=== PATIENT | female | born 1975 | race Caucasian/White ===

== ENCOUNTER 2019-01-01 09:11 | Inpatient (IN) | payer MEDICAID ==
[~2019-01-01] VITALS: Ht 152.4 cm; Wt 93.0 kg
[~2019-01-01 09:11] MED LIST: ESCI10TA PO; HCTZ25T PO; LISI-600 PO; NICO-687 TD
[2019-01-01 09:47] LABS: BASOPHILS % (AUTO) 0.4 % (0-1); EOSINOPHILS # (AUTO) 0.1 X10'3 (0-0.9); EOSINOPHILS % (AUTO) 1.2 % (0-6); HEMATOCRIT 43.6 % (35.0-45.0); HEMOGLOBIN 14.6 g/dl (12.0-16.0); LYMPHOCYTES # (AUTO) 2.3 X10'3 (1.1-4.8); MEAN CORPUSCULAR HEMOGLOBIN 29.9 PG (27.0-31.0); MEAN CORPUSCULAR HGB CONC 33.5 g/dL (33.0-36.5); MEAN CORPUSCULAR VOLUME 89.2 FL (78-98); MEAN PLATELET VOLUME 9.1 FL (7.4-10.4); MONOCYTES # (AUTO) 0.8 X10'3 (0-0.9); MONOCYTES % (AUTO) 9.1 % (2-12); NEUTROPHILS % (AUTO) 64.3 % (42-75); PLATELET COUNT 226 X10'3 (140-440); RED BLOOD COUNT 4.89 X10'6 (4.20-5.60); RED CELL DISTRIBUTION WIDTH 13.4 % (11.5-14.5); WHITE BLOOD COUNT 9.3 X10'3 (4.5-11.0)
[2019-01-01 10:00] LABS: ALANINE AMINOTRANSFERASE 22 U/L (12-78); ALBUMIN 3.5 G/DL (3.4-5.0); ALBUMIN/GLOBULIN RATIO 0.9 (1.1-1.5); ALKALINE PHOSPHATASE 65 IU/L (46-116); ANION GAP 12 (8-16); ASPARTATE AMINO TRANSFERASE 12 U/L (10-37); BILIRUBIN,TOTAL 0.3 MG/DL (0.1-1.0); BLOOD UREA NITROGEN 11 MG/DL (7-18); BUN/CREATININE RATIO 15.9 (6.6-38.0); CALCIUM 8.6 MG/DL (8.5-10.1); CHLORIDE 107 MMOL/L (99-107); CREATININE 0.69 MG/DL (0.40-0.90); GLUCOSE 123 MG/DL (70-104); PARTIAL THROMBOPLASTIN TIME 26 SECONDS (22-32); POTASSIUM 3.4 MMOL/L (3.5-5.1); SODIUM 145 MMOL/L (135-145); TOTAL PROTEIN 7.2 G/DL (6.4-8.2); eGFR > 90 ML/MIN
[2019-01-01 10:03] LABS: TROPONIN I < 0.04 NG/ML (0.0-0.05)
--- NOTE | 2019-01-01 10:30 | NUR ---
MD SOSA TELE MED ON SCREEN.
[2019-01-01] MEDS ORDERED: aspirin 325mg tablet PO ONE (10:40)
[2019-01-01] MEDS ORDERED: labetalol 20mg/4ml (5mg/ml) syringe IV ONE (11:25)
[2019-01-01] MEDS ORDERED: ondansetron/PF 4mg/2ml inj IV PRN (12:00)
[2019-01-01] MEDS ORDERED: magnesium hydroxide 30ml (MOM) UD suspension PO PRN (12:00)
[2019-01-01] MEDS ORDERED: mag hydrox/Alum hydrox/simeth 30ml oral suspension PO PRN (12:00)
[2019-01-01] MEDS ORDERED: LORazepam 1 MG tablet PO ONE (12:05)
[2019-01-01] MEDS: normal saline 1000ml 1,000 ML IV SCH ×2 (12:17→14:31)
[2019-01-01 12:50] LABS: URINE AMPHETAMINE SCREEN NEGATIVE (Neg); URINE BARBITUATE SCREEN NEGATIVE (Neg); URINE BENZODIAZEPINES SCREEN NEGATIVE (Neg); URINE CANNABINOID SCREEN POSITIVE (Neg); URINE COCAINE SCREEN NEGATIVE (Neg); URINE METHADONE SCREEN NEGATIVE (Neg); URINE OPIATE SCREEN NEGATIVE (Neg); URINE PHENCYCLIDINE SCREEN NEGATIVE (Neg)
[2019-01-01 13:01] LABS: CHOL/HDL RATIO 3.7 (0.00-4.99); CHOLESTEROL 156 MG/DL (0-200); HDL CHOLESTEROL 42 MG/DL (35-60); LDL CHOLESTEROL 96 MG/DL (50-100); TRIGLYCERIDES 113 MG/DL (20-135)
[2019-01-01] MEDS ORDERED: NICO-687 TOP (13:18)
[2019-01-01] MEDS ORDERED: LISI40TA4 PO (13:19)
--- NOTE | 2019-01-01 16:45 | NUR ---
PAGE to Dr Mccrary: #[id number]: Sri Camp: Hx of High BP: L facial numbness, lips, tongue, cheek, nares. No obvious physical deficits. 1340: 186/87 gradual elevation: Current: 216/104, 199/104. Renetta [id number]
--- NOTE | 2019-01-01 17:07 | NUR ---
Per Dr Mccrary: BP not treated when systolic below 220; Neuro protocol for 48hrs.
[2019-01-01] MEDS ORDERED: nicotine 21mg patch - 24 hr TD ONE (17:25)
[2019-01-01 18:00] VITALS: BP 179/81
--- NOTE | 2019-01-01 18:10 | NUR ---
Report rec'd from anita Jackson. Pt with permissive hypertension per Dr Mccrary. do not tx htn <220 systolic.
--- NOTE | 2019-01-01 18:15 | NUR ---
Problems reprioritized. Patient report given, questions answered & plan of care reviewed with GABE Cortes.
[2019-01-01] MEDS: heparin, porcine 5000 units/ml vial SQ SCH (19:40)
[2019-01-01 22:00] VITALS: BP 200/92
[2019-01-02] MEDS: normal saline 1000ml 1,000 ML IV SCH ×2 (00:44→17:53)
[2019-01-02 02:00] VITALS: BP 171/83
[2019-01-02] MEDS: acetaminophen 325mg tablet PO PRN ×3 (02:27→20:52)
[2019-01-02 06:00] VITALS: BP 211/137
[2019-01-02 06:09] LABS: BASOPHILS % (AUTO) 0.3 % (0-1); EOSINOPHILS # (AUTO) 0.1 X10'3 (0-0.9); EOSINOPHILS % (AUTO) 1.6 % (0-6); HEMATOCRIT 40.5 % (35.0-45.0); HEMOGLOBIN 13.5 g/dl (12.0-16.0); LYMPHOCYTES % (AUTO) 37.3 % (21-51); MEAN CORPUSCULAR HEMOGLOBIN 30.1 PG (27.0-31.0); MEAN CORPUSCULAR HGB CONC 33.3 g/dL (33.0-36.5); MEAN CORPUSCULAR VOLUME 90.2 FL (78-98); MEAN PLATELET VOLUME 9.3 FL (7.4-10.4); MONOCYTES # (AUTO) 0.8 X10'3 (0-0.9); MONOCYTES % (AUTO) 9.8 % (2-12); NEUTROPHILS # (AUTO) 4.1 X10'3 (1.8-7.7); PLATELET COUNT 192 X10'3 (140-440); RED BLOOD COUNT 4.49 X10'6 (4.20-5.60); RED CELL DISTRIBUTION WIDTH 13.5 % (11.5-14.5); WHITE BLOOD COUNT 8.1 X10'3 (4.5-11.0)
--- NOTE | 2019-01-02 06:20 | NUR ---
Patient in room ORTHO 4014. I have received report from and had the opportunity to ask questions and assume patient care GABE Cortes.
[2019-01-02 06:21] LABS: ANION GAP 8 (8-16); BLOOD UREA NITROGEN 7 MG/DL (7-18); BUN/CREATININE RATIO 10.8 (6.6-38.0); CHLORIDE 108 MMOL/L (99-107); CREATININE 0.65 MG/DL (0.40-0.90); GLUCOSE 88 MG/DL (70-104); POTASSIUM 3.3 MMOL/L (3.5-5.1); SODIUM 143 MMOL/L (135-145); eGFR > 90 ML/MIN
--- NOTE | 2019-01-02 06:22 | NUR ---
Report given to anita Jackson.
[2019-01-02] MEDS ORDERED: magnesium Cl slow-release 64mg tablet PO PRN (07:05)
[2019-01-02] MEDS ORDERED: potassium Cl 20 mEq SR tablet PO PRN ×2 (07:05)
[2019-01-02] MEDS ORDERED: potassium CL 10mEq/100ml bag 100 ML IV PRN (07:05)
[2019-01-02 07:32] LABS: MAGNESIUM 1.5 MG/DL (1.5-2.4)
[2019-01-02] MEDS ORDERED: non-formulary drug (Escitalopram Oxalate (Lexapro) 1 TAB) PO SCH (08:00)
[2019-01-02] MEDS ORDERED: non-formulary drug (Lisinopril* 1 TAB) PO SCH (08:00)
[2019-01-02] MEDS: amLODIPine 5mg tablet PO SCH (09:13)
[2019-01-02] MEDS: atorvastatin 20mg tablet PO SCH (09:13)
[2019-01-02] MEDS: aspirin 81mg tablet.DR PO SCH (09:13)
[2019-01-02] MEDS: citalopram 20mg tablet PO SCH (09:13)
[2019-01-02] MEDS: lisinopril 20mg tablet PO SCH (09:16)
[2019-01-02] MEDS: nicotine 21mg patch - 24 hr TD SCH (09:17)
[2019-01-02] MEDS: heparin, porcine 5000 units/ml vial SQ SCH ×2 (09:18→20:39)
[2019-01-02 11:07] VITALS: BP 177/80
[2019-01-02 14:00] VITALS: BP 189/98
--- NOTE | 2019-01-02 16:00 | NUR ---
Pt BP elevated this shift; MD aware. pt had one SILVERMAN 01/09, relieved w/tylenol 650mg. pt neuro checks show no signs of worsening symptoms. 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 PERRL, denies blurry vision, peripheral vision good. symetrical smile. Pt ambulating to toilet and back w/no obvious deficits. will continue to monitor.
[2019-01-02] MEDS: carvedilol 6.25mg tablet PO SCH ×2 (17:48→20:39)
[2019-01-02 20:50] VITALS: BP 196/83
[2019-01-02 22:00] VITALS: BP 155/70
[2019-01-03] VITALS (7 sets, daily range): BP systolic 116–187; BP diastolic 68–86
--- NOTE | 2019-01-03 03:38 | NUR ---
Rec'd call from tele r/t pt HR dipping into 40's while sleeping. also again now, another call that pt had 4 sec pause and 20beat SVT over 7secs. REchecked VS and Pt BP 195/75, HR [address] at [address] time. Notified Dr. Carrizales, with details of administration and symptoms. New order to d/c Coreg and report to day shift MD. will continue to monitor pt VS.
[2019-01-03] MEDS: normal saline 1000ml 1,000 ML IV SCH (03:59)
--- NOTE | 2019-01-03 06:26 | NUR ---
I have received patient report from Sophia BERNAL.
[2019-01-03 06:35] LABS: BASOPHILS % (AUTO) 0.5 % (0-1); EOSINOPHILS # (AUTO) 0.2 X10'3 (0-0.9); EOSINOPHILS % (AUTO) 1.6 % (0-6); HEMATOCRIT 40.4 % (35.0-45.0); HEMOGLOBIN 13.6 g/dl (12.0-16.0); LYMPHOCYTES # (AUTO) 2.3 X10'3 (1.1-4.8); MEAN CORPUSCULAR HEMOGLOBIN 30.1 PG (27.0-31.0); MEAN CORPUSCULAR HGB CONC 33.6 g/dL (33.0-36.5); MEAN CORPUSCULAR VOLUME 89.6 FL (78-98); MEAN PLATELET VOLUME 9.3 FL (7.4-10.4); MONOCYTES % (AUTO) 9.7 % (2-12); NEUTROPHILS # (AUTO) 6.6 X10'3 (1.8-7.7); NEUTROPHILS % (AUTO) 65.2 % (42-75); PLATELET COUNT 190 X10'3 (140-440); RED BLOOD COUNT 4.51 X10'6 (4.20-5.60); RED CELL DISTRIBUTION WIDTH 13.3 % (11.5-14.5); WHITE BLOOD COUNT 10.1 X10'3 (4.5-11.0)
--- NOTE | 2019-01-03 06:40 | NUR ---
Report given to anita Wong.
[2019-01-03 06:41] LABS: ANION GAP 7 (8-16); BLOOD UREA NITROGEN 12 MG/DL (7-18); BUN/CREATININE RATIO 17.1 (6.6-38.0); CALCIUM 8.4 MG/DL (8.5-10.1); CHLORIDE 107 MMOL/L (99-107); GLUCOSE 86 MG/DL (70-104); MAGNESIUM 1.6 MG/DL (1.5-2.4); POTASSIUM 3.7 MMOL/L (3.5-5.1); SODIUM 142 MMOL/L (135-145); TOTAL CARBON DIOXIDE 28.4 MMOL/L (24-32); eGFR > 90 ML/MIN
[2019-01-03] MEDS: citalopram 20mg tablet PO SCH (08:10)
[2019-01-03] MEDS: amLODIPine 5mg tablet PO SCH (08:11)
[2019-01-03] MEDS: aspirin 81mg tablet.DR PO SCH (08:11)
[2019-01-03] MEDS: lisinopril 20mg tablet PO SCH (08:11)
[2019-01-03] MEDS: atorvastatin 20mg tablet PO SCH (08:11)
[2019-01-03] MEDS: nicotine 21mg patch - 24 hr TD SCH (08:12)
[2019-01-03] MEDS: heparin, porcine 5000 units/ml vial SQ SCH ×2 (08:13→20:39)
--- NOTE | 2019-01-03 08:48 | NUR ---
Dr Mccrary paged regarding BP 218/93, which is still high, patient given bp meds this morning right after BP check.
[2019-01-03] MEDS ORDERED: hydrALAZINE 20mg/ml inj. IV ONE (08:50)
[2019-01-03] MEDS ORDERED: HYDROchlorothiazide 25mg tablet PO ONE (10:50)
[2019-01-03] MEDS ORDERED: carVEDilol 3.125mg tablet PO ONE (10:50)
[2019-01-03] MEDS: acetaminophen 325mg tablet PO PRN ×2 (11:00→20:37)
--- NOTE | 2019-01-03 17:44 | NUR ---
Dr. Mccrary paged about patient BP 204/91.
--- NOTE | 2019-01-03 18:22 | NUR ---
Patient report given to Sophia BERNAL
[2019-01-03] MEDS ORDERED: hydrALAZINE 20mg/ml inj. IV PRN (18:50)
--- NOTE | 2019-01-03 18:53 | NUR ---
Dr Mccrary returned call with new order for Hydralazine 10mg IV Q6hrs PRN. Orders placed. pt is to be NPO after midnight for renal US in AM.
[2019-01-03] MEDS: carVEDilol 3.125mg tablet PO SCH (20:38)
[2019-01-04 06:10] VITALS: BP 178/90
[2019-01-04 06:17] LABS: BASOPHILS % (AUTO) 0.4 % (0-1); EOSINOPHILS # (AUTO) 0.1 X10'3 (0-0.9); EOSINOPHILS % (AUTO) 1.4 % (0-6); HEMATOCRIT 44.1 % (35.0-45.0); HEMOGLOBIN 14.9 g/dl (12.0-16.0); LYMPHOCYTES # (AUTO) 2.5 X10'3 (1.1-4.8); LYMPHOCYTES % (AUTO) 25.6 % (21-51); MEAN CORPUSCULAR HEMOGLOBIN 29.7 PG (27.0-31.0); MEAN CORPUSCULAR HGB CONC 33.8 g/dL (33.0-36.5); MEAN CORPUSCULAR VOLUME 87.9 FL (78-98); MEAN PLATELET VOLUME 8.9 FL (7.4-10.4); MONOCYTES # (AUTO) 0.9 X10'3 (0-0.9); MONOCYTES % (AUTO) 8.6 % (2-12); NEUTROPHILS # (AUTO) 6.3 X10'3 (1.8-7.7); PLATELET COUNT 211 X10'3 (140-440); RED BLOOD COUNT 5.01 X10'6 (4.20-5.60); RED CELL DISTRIBUTION WIDTH 13.3 % (11.5-14.5); WHITE BLOOD COUNT 9.9 X10'3 (4.5-11.0)
--- NOTE | 2019-01-04 06:25 | NUR ---
REPORT GIVEN TO GABE RAMIREZ.
[2019-01-04 06:27] LABS: ALBUMIN 3.2 G/DL (3.4-5.0); ANION GAP 9 (8-16); BLOOD UREA NITROGEN 9 MG/DL (7-18); BUN/CREATININE RATIO 13.4 (6.6-38.0); CALCIUM 9.4 MG/DL (8.5-10.1); CHLORIDE 105 MMOL/L (99-107); CREATININE 0.67 MG/DL (0.40-0.90); GLUCOSE 96 MG/DL (70-104); MAGNESIUM 1.6 MG/DL (1.5-2.4); POTASSIUM 3.7 MMOL/L (3.5-5.1); SODIUM 140 MMOL/L (135-145); TOTAL CARBON DIOXIDE 25.9 MMOL/L (24-32); eGFR > 90 ML/MIN
--- NOTE | 2019-01-04 06:28 | NUR ---
I have received patient report from Sophia BERNAL
[2019-01-04] MEDS: amLODIPine 5mg tablet PO SCH (07:27)
[2019-01-04] MEDS: atorvastatin 20mg tablet PO SCH (07:27)
[2019-01-04] MEDS: citalopram 20mg tablet PO SCH (07:27)
[2019-01-04] MEDS: aspirin 81mg tablet.DR PO SCH (07:27)
[2019-01-04] MEDS: carVEDilol 3.125mg tablet PO SCH (07:28)
[2019-01-04] MEDS: lisinopril 20mg tablet PO SCH (07:28)
[2019-01-04] MEDS: nicotine 21mg patch - 24 hr TD SCH (07:28)
[2019-01-04] MEDS: heparin, porcine 5000 units/ml vial SQ SCH (07:30)
[2019-01-04] MEDS ORDERED: HYDROchlorothiazide 25mg tablet PO SCH (08:00)
[2019-01-04 10:00] VITALS: BP 145/51
[2019-01-04] MEDS ORDERED: ASPI-1071 PO (12:59)
[2019-01-04] MEDS ORDERED: ATOR20TA66 PO (12:59)
[2019-01-04] MEDS ORDERED: NOR5T PO (12:59)
[2019-01-04] MEDS ORDERED: LISI-600 PO (12:59)
[2019-01-04] MEDS ORDERED: COR3.125T PO (12:59)
[2019-01-04] MEDS ORDERED: HCTZ25T PO (12:59)
[2019-01-04] MEDS ORDERED: NICO-687 TOP (13:36)
[2019-01-04 13:48] VITALS: BP 168/77
--- NOTE | 2019-01-04 14:35 | NUR ---
Patient discharged and all new medications called into [facility]. Patient taught all discharge instructions regarding stroke and follow up appointment as well as new medication information.
== END 2019-01-04 14:30 | disposition home or self-care (01) | DRG 45 ==
LOC: ER 09:13 → ORTHO 4S 13:43 → CMPBEDREQ 19:57
PROVIDERS: ADMIT Family Medicine; ATTEND Family Medicine
DX: I63.81 Other cerebral infarction due to occlusion or stenosis of small artery (principal); E78.00 Pure hypercholesterolemia, unspecified; F12.90 Cannabis use, unspecified, uncomplicated; I10 Essential (primary) hypertension; J45.909 Unspecified asthma, uncomplicated; F17.219 Nicotine dependence, cigarettes, with unspecified nicotine-induced disorders; F32.9 Major depressive disorder, single episode, unspecified; E87.6 Hypokalemia; F41.9 Anxiety disorder, unspecified; G43.909 Migraine, unspecified, not intractable, without status migrainosus; Z98.891 History of uterine scar from previous surgery; Z79.899 Other long term (current) drug therapy; Z56.0 Unemployment, unspecified
CPT/HCPCS: 36415; 70450; 70544; 70547; 70551; 71045; 80048; 80053; 80061; 80305; 82948; 83735; 84484; 85025; 85610; 85730; 87081; 92508; 92616; 93005; 93306; 93880; 93975; 96374; 97110; 97116; 97162; 99285; G0378; J0360; J1644; J3490; J7030

== ENCOUNTER 2020-04-08 10:19 | Inpatient (IN) | payer MEDICAID ==
[~2020-04-08] VITALS: Ht 152.4 cm; Wt 106.8 kg
[~2020-04-08 10:19] MED LIST changes: +ASPI-1071 PO; +ATOR20TA66 PO; +COR3.125T PO; -NICO-687 TD; +NICO-687 TOP; +NOR5T PO
[2020-04-08 11:03] LABS: BASOPHILS # (AUTO) 0.1 X10'3 (0-0.2); BASOPHILS % (AUTO) 0.7 % (0-1); EOSINOPHILS # (AUTO) 0.2 X10'3 (0-0.9); EOSINOPHILS % (AUTO) 1.3 % (0-6); HEMATOCRIT 46.3 % (35.0-45.0); HEMOGLOBIN 15.2 g/dl (12.0-16.0); LYMPHOCYTES # (AUTO) 1.8 X10'3 (1.1-4.8); MEAN CORPUSCULAR HEMOGLOBIN 28.6 PG (27.0-31.0); MEAN CORPUSCULAR HGB CONC 32.9 g/dL (33.0-36.5); MEAN PLATELET VOLUME 8.6 FL (7.4-10.4); MONOCYTES # (AUTO) 1.1 X10'3 (0-0.9); MONOCYTES % (AUTO) 6.4 % (2-12); NEUTROPHILS # (AUTO) 14.6 X10'3 (1.8-7.7); NEUTROPHILS % (AUTO) 81.6 % (42-75); PLATELET COUNT 297 X10'3 (140-440); RED BLOOD COUNT 5.32 X10'6 (4.20-5.60); WHITE BLOOD COUNT 17.9 X10'3 (4.5-11.0)
[2020-04-08 11:13] LABS: ALANINE AMINOTRANSFERASE 29 U/L (12-78); ALBUMIN 3.5 G/DL (3.4-5.0); ALBUMIN/GLOBULIN RATIO 0.9 (1.1-1.5); ALKALINE PHOSPHATASE 78 IU/L (46-116); ANION GAP 8 (8-16); ASPARTATE AMINO TRANSFERASE 17 U/L (10-37); BILIRUBIN,TOTAL 0.6 MG/DL (0.1-1.0); BLOOD UREA NITROGEN 11 MG/DL (7-18); BUN/CREATININE RATIO 13.1 (6.6-38.0); CALCIUM 8.5 MG/DL (8.5-10.1); CHLORIDE 105 MMOL/L (99-107); CREATININE 0.84 MG/DL (0.40-0.90); GLUCOSE 110 MG/DL (70-104); LIPASE 55 U/L (73-393); POTASSIUM 3.9 MMOL/L (3.5-5.1); SODIUM 139 MMOL/L (135-145); TOTAL CARBON DIOXIDE 26.1 MMOL/L (24-32); TOTAL PROTEIN 7.3 G/DL (6.4-8.2); eGFR 73 ML/MIN
[2020-04-08 11:34] LABS: URINE HCG NEGATIVE (NEG)
[2020-04-08] MEDS ORDERED: ondansetron/PF 4mg/2ml inj IV ONE (11:35)
[2020-04-08] MEDS ORDERED: morphine 10mg/ml inj. IV ONE (11:35)
[2020-04-08] MEDS ORDERED: normal saline 1000ML IV soln IVB ONE (11:35)
[2020-04-08 11:45] LABS: CLARITY,URINE SLIGHTLY CLOUDY (Clear); COLOR,URINE YELLOW (Yellow); GLUCOSE, URINE NEGATIVE (Neg); KETONES,URINE NEGATIVE (Neg); LEUKOCYTE ESTERASE ,URINE NEGATIVE (Neg); NITRITES, URINE POSITIVE (Neg); OCCULT BLOOD,URINE TRACE-INTACT (Neg); PROTEIN,URINE 100 mg/dl (Neg); UROBILINOGEN,URINE 0.2 E.U/dL (0.2-1.0)
[2020-04-08 12:14] LABS: UA COLLECTION TYPE CLN CATCH MIDSTREAM
[2020-04-08 12:17] LABS: HYALINE CASTS 0-3 /LPF (NEGATIVE); SQUAMOUS EPITHELIAL CELL,UR MANY /LPF (FEW)
[2020-04-08 12:18] LABS: MUCUS STRANDS MODERATE /LPF (Neg)
[2020-04-08 12:21] LABS: WBC,URINE 0-4 /HPF (0-4)
[2020-04-08 12:27] LABS: BACTERIA,URINE 1+ /HPF (Neg); RBC,URINE 0-2 /HPF (0-2); YEAST FEW /HPF (NEGATIVE)
[2020-04-08] MEDS ORDERED: metroNIDAZOLE-Flagyl 500mg/NS 100 ML IV ONE (15:40)
[2020-04-08] MEDS ORDERED: CefTRIAXone 2gm/D5W 50ml BAG 50 ML IV ONE (15:40)
[2020-04-08] MEDS ORDERED: magnesium 2GM in 50ml NS 50 ML IV PRN (16:05)
[2020-04-08] MEDS ORDERED: potassium CL 10mEq/100ml bag 100 ML IV PRN ×2 (16:05)
[2020-04-08] MEDS ORDERED: magnesium Cl slow-release 64mg tablet PO PRN (16:05)
[2020-04-08] MEDS ORDERED: potassium Cl 20 mEq SR tablet PO PRN ×2 (16:05)
[2020-04-08] MEDS ORDERED: acetaminophen 325mg tablet PO PRN (16:05)
[2020-04-08] MEDS ORDERED: magnesium 4gm in 100ml NS 100 ML IV PRN (16:05)
[2020-04-08] MEDS: normal saline 1000ml 1,000 ML IV SCH (16:10)
[2020-04-08] MEDS ORDERED: ASPI-1397 PO (16:30)
[2020-04-08] MEDS ORDERED: AMLO10TA13 PO (16:30)
[2020-04-08] MEDS ORDERED: HYDR25TA4 PO (16:30)
[2020-04-08] MEDS ORDERED: CARV3.122 PO (16:30)
[2020-04-08] MEDS ORDERED: LISI-600 PO (16:30)
[2020-04-08] MEDS ORDERED: ATOR20TA66 PO (16:32)
[2020-04-08] MEDS: levoFLOXACIN-Levaquin 500mg/D5 100 ML IV SCH ×2 (17:21→17:24)
--- NOTE | 2020-04-08 18:45 | NUR ---
Pt assisted to restroom
--- NOTE | 2020-04-08 19:00 | NUR ---
Received report from Jaquelin BERNAL from ER, patient arrived on unit at 1914 on gurney, s.l. room air, vss, a/o, no signs of distress, will continue to monitor
[2020-04-08] MEDS: HYDROmorphone inj. 0.5 MG/0.5 ML DISP.SYRIN IV PRN (19:35)
[2020-04-08 20:00] VITALS: BP 152/78
[2020-04-08] MEDS: K and/or MAG REPLACEMENT MC SCH (20:00)
[2020-04-08] MEDS: morphine 2 MG/ML inj. syringe IV PRN (23:50)
[2020-04-09] VITALS: BP 128/61
[2020-04-09] MEDS: metroNIDAZOLE-Flagyl 500mg/NS 100 ML IV SCH ×3 (00:48→15:36)
[2020-04-09] MEDS: morphine 2 MG/ML inj. syringe IV PRN ×3 (04:41→20:22)
--- NOTE | 2020-04-09 06:03 | NUR ---
Problems reprioritized. Patient report given, questions answered & plan of care reviewed with Savannah BERNAL.
--- NOTE | 2020-04-09 06:04 | NUR ---
Patient in room LIU 347. I have received report from Yael BERNAL and had the opportunity to ask questions and assume patient care.
[2020-04-09 06:05] LABS: BASOPHILS % (AUTO) 0.5 % (0-1); EOSINOPHILS # (AUTO) 0.4 X10'3 (0-0.9); EOSINOPHILS % (AUTO) 4.3 % (0-6); HEMOGLOBIN 13.9 g/dl (12.0-16.0); LYMPHOCYTES # (AUTO) 2.3 X10'3 (1.1-4.8); LYMPHOCYTES % (AUTO) 24.6 % (21-51); MEAN CORPUSCULAR HEMOGLOBIN 29.8 PG (27.0-31.0); MEAN CORPUSCULAR VOLUME 87.5 FL (78-98); MEAN PLATELET VOLUME 8.9 FL (7.4-10.4); MONOCYTES % (AUTO) 10.6 % (2-12); NEUTROPHILS # (AUTO) 5.6 X10'3 (1.8-7.7); PLATELET COUNT 249 X10'3 (140-440); RED BLOOD COUNT 4.68 X10'6 (4.20-5.60); RED CELL DISTRIBUTION WIDTH 13.9 % (11.5-14.5); WHITE BLOOD COUNT 9.3 X10'3 (4.5-11.0)
[2020-04-09 06:18] LABS: ANION GAP 8 (8-16); BLOOD UREA NITROGEN 10 MG/DL (7-18); BUN/CREATININE RATIO 11.4 (6.6-38.0); CALCIUM 8.2 MG/DL (8.5-10.1); CHLORIDE 106 MMOL/L (99-107); CREATININE 0.88 MG/DL (0.40-0.90); GLUCOSE 98 MG/DL (70-104); MAGNESIUM 1.5 MG/DL (1.5-2.4); POTASSIUM 3.3 MMOL/L (3.5-5.1); SODIUM 140 MMOL/L (135-145); TOTAL CARBON DIOXIDE 26.5 MMOL/L (24-32); eGFR 69 ML/MIN
[2020-04-09] MEDS: normal saline 1000ml 1,000 ML IV SCH ×3 (07:10→17:55)
[2020-04-09] MEDS: ondansetron/PF 4mg/2ml inj IV PRN ×2 (07:20→15:36)
[2020-04-09] MEDS: HYDROmorphone inj. 0.5 MG/0.5 ML DISP.SYRIN IV PRN ×3 (07:26→17:56)
[2020-04-09] MEDS: levoFLOXACIN-Levaquin 500mg/D5 100 ML IV SCH (07:30)
[2020-04-09 08:00] VITALS: BP 189/69
[2020-04-09] MEDS: K and/or MAG REPLACEMENT MC SCH ×2 (08:00→20:00)
[2020-04-09] MEDS ORDERED: pneumococcal 23-VAL P-sac vacc 25 mcg/0.5ml vial IMVAC ONE (10:00)
[2020-04-09] MEDS ORDERED: FLU VACC QS2020-21(6MOS UP)/PF 60 MCG/0.5 ML SYRINGE IMVAC ONE (10:00)
[2020-04-09 11:00] VITALS: BP 185/86
[2020-04-09 11:45] VITALS: BP 157/82
[2020-04-09] MEDS ORDERED: hydrALAZINE 20mg/ml inj. IV PRN (13:20)
[2020-04-09] MEDS: lisinopril 20mg tablet PO SCH (15:36)
[2020-04-09] MEDS: ipratropium/albuterol 3ml nebule NEB SCH ×2 (15:49→20:36)
--- NOTE | 2020-04-09 18:27 | NUR ---
Problems reprioritized. Patient report given, questions answered & plan of care reviewed with Joseline BERNAL.
--- NOTE | 2020-04-09 18:45 | NUR ---
Patient in room LIU 347. I have received report from Arlyn BERNAL and had the opportunity to ask questions and assume patient care.
[2020-04-09 20:00] VITALS: BP 137/64
[2020-04-09] MEDS: lactobacillus rhamnosus 10,000 MMU CELLS/CAPSULE PO SCH (20:21)
[2020-04-09] MEDS: carVEDilol 3.125mg tablet PO SCH (20:21)
[2020-04-09] MEDS: diatr meglu/diatrizoate 30ml oral sol.-(3 dose) bottle PO SCH (20:22)
[2020-04-10] VITALS: BP 136/70
[2020-04-10] MEDS: ondansetron/PF 4mg/2ml inj IV PRN (00:07)
[2020-04-10] MEDS: metroNIDAZOLE-Flagyl 500mg/NS 100 ML IV SCH ×3 (00:07→16:44)
[2020-04-10] MEDS: HYDROmorphone inj. 0.5 MG/0.5 ML DISP.SYRIN IV PRN ×4 (00:07→16:45)
[2020-04-10] MEDS: ipratropium/albuterol 3ml nebule NEB SCH ×4 (04:37→21:01)
[2020-04-10 05:51] LABS: BASOPHILS % (AUTO) 0.4 % (0-1); EOSINOPHILS # (AUTO) 0.4 X10'3 (0-0.9); EOSINOPHILS % (AUTO) 4.2 % (0-6); HEMATOCRIT 38.3 % (35.0-45.0); HEMOGLOBIN 12.9 g/dl (12.0-16.0); LYMPHOCYTES # (AUTO) 2.3 X10'3 (1.1-4.8); LYMPHOCYTES % (AUTO) 27.6 % (21-51); MEAN CORPUSCULAR HEMOGLOBIN 29.9 PG (27.0-31.0); MEAN CORPUSCULAR HGB CONC 33.7 g/dL (33.0-36.5); MEAN CORPUSCULAR VOLUME 88.7 FL (78-98); MEAN PLATELET VOLUME 8.7 FL (7.4-10.4); MONOCYTES # (AUTO) 0.9 X10'3 (0-0.9); MONOCYTES % (AUTO) 10.6 % (2-12); NEUTROPHILS # (AUTO) 4.8 X10'3 (1.8-7.7); NEUTROPHILS % (AUTO) 57.2 % (42-75); PLATELET COUNT 214 X10'3 (140-440); RED BLOOD COUNT 4.32 X10'6 (4.20-5.60); RED CELL DISTRIBUTION WIDTH 13.7 % (11.5-14.5); WHITE BLOOD COUNT 8.4 X10'3 (4.5-11.0)
[2020-04-10 05:54] LABS: ALBUMIN 2.9 G/DL (3.4-5.0); ANION GAP 8 (8-16); BLOOD UREA NITROGEN 7 MG/DL (7-18); BUN/CREATININE RATIO 9.6 (6.6-38.0); CALCIUM 8.1 MG/DL (8.5-10.1); CHLORIDE 108 MMOL/L (99-107); CREATININE 0.73 MG/DL (0.40-0.90); GLUCOSE 94 MG/DL (70-104); MAGNESIUM 1.6 MG/DL (1.5-2.4); POTASSIUM 3.5 MMOL/L (3.5-5.1); SODIUM 141 MMOL/L (135-145); TOTAL CARBON DIOXIDE 24.8 MMOL/L (24-32); eGFR 86 ML/MIN
--- NOTE | 2020-04-10 06:32 | NUR ---
Patient in room LIU 347. I have received report from GABE Stoddard and had the opportunity to ask questions and assume patient care.
[2020-04-10 07:00] VITALS: BP 146/74
[2020-04-10] MEDS: K and/or MAG REPLACEMENT MC SCH ×2 (07:25→20:00)
[2020-04-10] MEDS: atorvastatin 20mg tablet PO SCH (07:31)
[2020-04-10] MEDS: lactobacillus rhamnosus 10,000 MMU CELLS/CAPSULE PO SCH ×2 (07:31→21:25)
[2020-04-10] MEDS: ESCITALOPRAM OXALATE 5 MG TABLET PO SCH (07:31)
[2020-04-10] MEDS: carVEDilol 3.125mg tablet PO SCH ×2 (07:31→21:24)
[2020-04-10] MEDS: aspirin 81mg tablet.DR PO SCH (07:31)
[2020-04-10] MEDS: lisinopril 20mg tablet PO SCH (07:32)
[2020-04-10] MEDS: amLODIPine 5mg tablet PO SCH (07:32)
[2020-04-10] MEDS: diatr meglu/diatrizoate 30ml oral sol.-(3 dose) bottle PO SCH ×2 (07:35→15:02)
[2020-04-10] MEDS: normal saline 1000ml 1,000 ML IV SCH ×2 (07:36→16:44)
[2020-04-10] MEDS: levoFLOXACIN-Levaquin 500mg/D5 100 ML IV SCH (08:49)
[2020-04-10 11:00] VITALS: BP 131/68
[2020-04-10] MEDS ORDERED: iohexol 300mg/ml 100ml inj. ONE (13:40)
[2020-04-10 18:00] VITALS: BP 137/68
--- NOTE | 2020-04-10 18:27 | NUR ---
Problems reprioritized. Patient report given, questions answered & plan of care reviewed with GABE Parks.
--- NOTE | 2020-04-10 18:55 | NUR ---
Patient in room LIU 347. I have received report from AVANI BERNAL and had the opportunity to ask questions and assume patient care.
[2020-04-10] MEDS: morphine 2 MG/ML inj. syringe IV PRN (21:25)
[2020-04-11] VITALS: BP 135/70
[2020-04-11] MEDS: metroNIDAZOLE-Flagyl 500mg/NS 100 ML IV SCH ×2 (01:41→08:58)
[2020-04-11] MEDS: ipratropium/albuterol 3ml nebule NEB SCH ×2 (03:00→09:20)
[2020-04-11] MEDS: normal saline 1000ml 1,000 ML IV SCH (03:26)
[2020-04-11] MEDS: HYDROmorphone inj. 0.5 MG/0.5 ML DISP.SYRIN IV PRN (04:57)
--- NOTE | 2020-04-11 06:13 | NUR ---
Patient in room LIU 347. I have received report from GABE Parks and had the opportunity to ask questions and assume patient care.
--- NOTE | 2020-04-11 06:26 | NUR ---
Problems reprioritized. Patient report given, questions answered & plan of care reviewed with AVANI BERNAL.
[2020-04-11 06:31] LABS: BASOPHILS % (AUTO) 0.4 % (0-1); EOSINOPHILS # (AUTO) 0.3 X10'3 (0-0.9); EOSINOPHILS % (AUTO) 4.3 % (0-6); HEMOGLOBIN 13.8 g/dl (12.0-16.0); LYMPHOCYTES # (AUTO) 1.9 X10'3 (1.1-4.8); LYMPHOCYTES % (AUTO) 24.4 % (21-51); MEAN CORPUSCULAR HEMOGLOBIN 29.7 PG (27.0-31.0); MEAN CORPUSCULAR HGB CONC 33.6 g/dL (33.0-36.5); MEAN CORPUSCULAR VOLUME 88.4 FL (78-98); MEAN PLATELET VOLUME 8.7 FL (7.4-10.4); MONOCYTES # (AUTO) 0.7 X10'3 (0-0.9); MONOCYTES % (AUTO) 8.9 % (2-12); NEUTROPHILS # (AUTO) 4.9 X10'3 (1.8-7.7); PLATELET COUNT 266 X10'3 (140-440); RED BLOOD COUNT 4.63 X10'6 (4.20-5.60); RED CELL DISTRIBUTION WIDTH 13.8 % (11.5-14.5); WHITE BLOOD COUNT 7.9 X10'3 (4.5-11.0)
[2020-04-11 06:45] LABS: ALBUMIN 3.2 G/DL (3.4-5.0); ANION GAP 10 (8-16); BLOOD UREA NITROGEN 6 MG/DL (7-18); BUN/CREATININE RATIO 7.8 (6.6-38.0); CALCIUM 8.6 MG/DL (8.5-10.1); CHLORIDE 106 MMOL/L (99-107); CREATININE 0.77 MG/DL (0.40-0.90); GLUCOSE 100 MG/DL (70-104); MAGNESIUM 1.7 MG/DL (1.5-2.4); POTASSIUM 3.6 MMOL/L (3.5-5.1); SODIUM 142 MMOL/L (135-145); TOTAL CARBON DIOXIDE 26.3 MMOL/L (24-32); eGFR 81 ML/MIN
[2020-04-11 07:00] VITALS: BP 175/83
[2020-04-11] MEDS: K and/or MAG REPLACEMENT MC SCH (08:00)
[2020-04-11] MEDS: ESCITALOPRAM OXALATE 5 MG TABLET PO SCH (08:59)
[2020-04-11] MEDS: lactobacillus rhamnosus 10,000 MMU CELLS/CAPSULE PO SCH (08:59)
[2020-04-11] MEDS: atorvastatin 20mg tablet PO SCH (08:59)
[2020-04-11] MEDS: aspirin 81mg tablet.DR PO SCH (08:59)
[2020-04-11] MEDS: lisinopril 20mg tablet PO SCH (08:59)
[2020-04-11] MEDS: amLODIPine 5mg tablet PO SCH (08:59)
[2020-04-11] MEDS: carVEDilol 3.125mg tablet PO SCH (08:59)
[2020-04-11] MEDS ORDERED: pneumococcal 23-VAL P-sac vacc 25 mcg/0.5ml vial IMVAC ONE (10:00)
[2020-04-11] MEDS ORDERED: FLU VACC QS2020-21(6MOS UP)/PF 60 MCG/0.5 ML SYRINGE IMVAC ONE (10:00)
[2020-04-11] MEDS: levoFLOXACIN-Levaquin 500mg/D5 100 ML IV SCH (10:13)
[2020-04-11 11:00] VITALS: BP 178/51
[2020-04-11 12:00] VITALS: BP 156/72
[2020-04-11] MEDS ORDERED: OMEP20CA15 PO (12:23)
[2020-04-11] MEDS ORDERED: HYDR25TA4 PO (12:24)
[2020-04-11] MEDS ORDERED: PRED10TA23 PO (12:25)
--- NOTE | 2020-04-11 13:45 | NUR ---
Patient discharged home via family and taken from unit via ambulation with x1 staff. Patient alert, oriented and in no apparent distress at time of discharge. Patient took all belongings with her including discharge instructions. Patient PIV removed with cannula intact. Patient new medications were called into [facility] per Patient request. New medications were thoroughly discussed with patient as well as when to take home medications based on when she had them here. Patient was also given discharge instructions to follow up with PCP in one week and to get a referral for a GI specialist. Patient agreed. Patient stated an understanding of these instructions and all questions were answered at time of discharge.
== END 2020-04-11 13:45 | disposition home or self-care (01) | DRG 245 ==
LOC: ER 10:20 → ED HOLD 16:01 → SUR 3N 19:26
PROVIDERS: ADMIT Internal Medicine; ATTEND Internal Medicine
DX: K50.90 Crohn's disease, unspecified, without complications (principal); Z20.828 Contact with and (suspected) exposure to other viral communicable diseases; E78.00 Pure hypercholesterolemia, unspecified; Z86.73 Personal history of transient ischemic attack (TIA), and cerebral infarction without residual deficits; N20.0 Calculus of kidney; F12.90 Cannabis use, unspecified, uncomplicated; J44.1 Chronic obstructive pulmonary disease with (acute) exacerbation; I10 Essential (primary) hypertension; E78.5 Hyperlipidemia, unspecified; D72.829 Elevated white blood cell count, unspecified; F32.9 Major depressive disorder, single episode, unspecified; F17.200 Nicotine dependence, unspecified, uncomplicated
CPT/HCPCS: 36415; 74176; 74177; 76937; 80048; 80053; 81001; 81025; 83605; 83690; 83735; 84145; 85025; 87040; 87081; 87635; 90732; 94640; 94760; 96365; 96375; 99285; G0378; J0696; J1170; J1956; J2270; J2405; J3490; J7030; Q2039; Q9963; Q9967

== ENCOUNTER 2020-07-24 09:53 | Day surgery (SDC) | payer MEDICAID ==
[2020-07-16 14:02] LABS: BASOPHILS % (AUTO) 0.3 % (0-1); EOSINOPHILS # (AUTO) 0.2 X10'3 (0-0.9); EOSINOPHILS % (AUTO) 1.7 % (0-6); LYMPHOCYTES # (AUTO) 2.8 X10'3 (1.1-4.8); LYMPHOCYTES % (AUTO) 27.4 % (21-51); MEAN CORPUSCULAR HEMOGLOBIN 28.7 PG (27.0-31.0); MEAN CORPUSCULAR HGB CONC 33.1 g/dL (33.0-36.5); MEAN CORPUSCULAR VOLUME 86.5 FL (78-98); MEAN PLATELET VOLUME 8.7 FL (7.4-10.4); MONOCYTES % (AUTO) 9.3 % (2-12); NEUTROPHILS # (AUTO) 6.3 X10'3 (1.8-7.7); NEUTROPHILS % (AUTO) 61.3 % (42-75); PRE OP HEMOGLOBIN 14.6 g/dL (12.0-16.0); PRE OP PLATELET COUNT 295 X10'3 (140-440); RED BLOOD COUNT 5.09 X10'6 (4.20-5.60); RED CELL DISTRIBUTION WIDTH 14.4 % (11.5-14.5)
[2020-07-16 14:08] LABS: ALBUMIN 3.5 G/DL (3.4-5.0); ALBUMIN/GLOBULIN RATIO 0.9 (1.1-1.5); ALKALINE PHOSPHATASE 77 IU/L (46-116); BLOOD UREA NITROGEN 17 MG/DL (7-18); CALCIUM 9.3 MG/DL (8.5-10.1); CHLORIDE 102 MMOL/L (99-107); CREATININE 0.85 MG/DL (0.40-0.90); PRE OP ALT 30 U/L (30-65); PRE OP ANION GAP 6 (8-16); PRE OP AST 20 U/L (10-37); PRE OP BILIRUB, TOTAL 0.3 MG/DL (0.0-1.0); PRE OP GLUCOSE 89 MG/DL (70-104); PRE OP POTASSIUM 3.6 MMOL/L (3.4-5.1); PRE OP SODIUM 137 MMOL/L (135-145); TOTAL CARBON DIOXIDE 29.4 MMOL/L (24-32); TOTAL PROTEIN 7.5 G/DL (6.4-8.2); eGFR 72 ML/MIN
[~2020-07-24] VITALS: Ht 152.4 cm; Wt 110.7 kg
[2020-07-24] VITALS (8 sets, daily range): BP systolic 118–153; BP diastolic 49–91
[~2020-07-24 09:53] MED LIST changes: +ALBU18HF2 INH; +AMLO10TA13 PO; -ASPI-1071 PO; +ASPI-1397 PO; +CARV3.122 PO; -COR3.125T PO; +DOCUMENT DATE & TIME OF BETA-BLOCKER PO ONE; -HCTZ25T PO; +HYDR-3686 PO; +HYDR25TA5 PO; -LISI-600 PO; +LISI20TA28 PO; -NICO-687 TOP; -NOR5T PO; +ceFAZolin 2gm in dextrose, iso 50 ML IV ONE; +famotidine 20mg tablet PO ONE; +ringers solution, lacted 1,000 ML IV SCH; +vancomycin 1,500 MG in NS 300ml IV soln IV ONE
[2020-07-24] MEDS ORDERED: acetaminophen 325mg tablet PO ONE (10:45)
[2020-07-24] MEDS ORDERED: methylPREDNISolone sod succ 125mg/2ml vial ONE (10:57)
[2020-07-24] MEDS ORDERED: BUPIVAcaine/PF 2.5 mg/ml (0.25%) 30ml vial ONE (10:57)
[2020-07-24] MEDS ORDERED: HYDROmorphone/PF 0.2 MG/ML SYRINGE IV PRN ×2 (11:05)
[2020-07-24] MEDS ORDERED: labetalol 20mg/4ml (5mg/ml) syringe IV PRN (11:05)
[2020-07-24] MEDS ORDERED: proCHLORperazine 10 MG/2 ml inj IV PRN (11:05)
[2020-07-24] MEDS ORDERED: ringers solution, lacted 1,000 ML IV SCH (11:05)
[2020-07-24] MEDS ORDERED: hydrALAZINE 20mg/ml inj. IV PRN (11:05)
[2020-07-24] MEDS ORDERED: morphine 4 MG/ML inj SYRINge IV PRN (11:05)
[2020-07-24] MEDS ORDERED: ondansetron/PF 4mg/2ml inj IV PRN (11:05)
[2020-07-24] MEDS ORDERED: ketorolac trometh. 30mg/ml inj. IV ONE (11:05)
[2020-07-24] MEDS ORDERED: morphine 2 MG/ML inj. syringe IV PRN (11:05)
[2020-07-24] MEDS ORDERED: acetaminophen 1,000mg/100ml IV 100 ML IV PRN (11:05)
[2020-07-24] MEDS ORDERED: fentaNYL/PF 50MCG/1 ML 2ML syringe ONE (11:46)
[2020-07-24] MEDS ORDERED: midazolam 1 mg/ML 2ml injection ONE (11:46)
[2020-07-24] MEDS ORDERED: LIDOcaine 0.5% (5mg/ml) 50ml vial ONE (11:57)
[2020-07-24] MEDS ORDERED: propofol inj 20 ML IV ONE (11:57)
[2020-07-24] MEDS ORDERED: diphenhydrAMINE 50 mg/ml inj ONE (12:14)
--- NOTE | 2020-07-24 12:25 | NUR ---
Received from OR via [facility], accompanied by Anesthesiologist DR FLYNN and report given by Anesthesiologist. PATIENT WAKING UP, DENIES PAIN, V/S WNL, NEUROVASCULAR CHECKS INTACT-+ CAP REFILL, PINK WARM FINGERS TO LEFT HAND, 22G PIV LUE, SCD ON, DRESSING TO LEFT WRIST-CDI ELEVATED WITH ICEBAG APPLIED.
--- NOTE | 2020-07-24 13:55 | NUR ---
PATIENT A&OX4, DENIES PAIN, V/S WNL, NEUROVASCULAR CHECKS INTACT-+CAP REFILL LEFT FINGERS PINK WARM,, 22G PIV RUE D/C, SCD OFF, DRESSING TO LEFT WRIST-CDI ELEVATED WITH ICEBAG APPLIED. I HAVE REVIEWED D/C INSTRUCTIONS WITH PATIENT AND FAMILY AND THEY HAVE VERBALIZED UNDERSTANDING. PATIENT D/C HOME WITH ALL BELONGINGS AND FAMILY GAVE TRANSPORT HOME
== END 2020-07-24 13:55 | disposition home or self-care (01) ==
LOC: PAS 09:53
PROVIDERS: ATTEND Orthopaedic Surgery
DX: G56.02 Carpal tunnel syndrome, left upper limb (principal); G56.22 Lesion of ulnar nerve, left upper limb; J45.909 Unspecified asthma, uncomplicated; F32.9 Major depressive disorder, single episode, unspecified; I10 Essential (primary) hypertension; G47.30 Sleep apnea, unspecified; E78.5 Hyperlipidemia, unspecified; E66.01 Morbid (severe) obesity due to excess calories; Z68.42 Body mass index [BMI] 45.0-49.9, adult; F17.210 Nicotine dependence, cigarettes, uncomplicated; Z86.73 Personal history of transient ischemic attack (TIA), and cerebral infarction without residual deficits; Z20.822 Contact with and (suspected) exposure to COVID-19; Z98.890 Other specified postprocedural states; Z98.51 Tubal ligation status; Z79.899 Other long term (current) drug therapy
CPT/HCPCS: 36415; 64719; 64721; 71046; 80053; 85025; 93005; A6222; J1200; J2001; J2250; J2704; J2930; J3010; J3370; J3490; J7040; U0003; A4215; A4565; A4618; A6449; A7000; J7120

== ENCOUNTER 2020-10-06 18:03 | Inpatient (IN) | payer MEDICAID ==
[~2020-10-06] VITALS: Ht 149.9 cm; Wt 110.0 kg
[~2020-10-06 18:03] MED LIST changes: -DOCUMENT DATE & TIME OF BETA-BLOCKER PO ONE; -ceFAZolin 2gm in dextrose, iso 50 ML IV ONE; -famotidine 20mg tablet PO ONE; -ringers solution, lacted 1,000 ML IV SCH; -vancomycin 1,500 MG in NS 300ml IV soln IV ONE
[2020-10-06] MEDS ORDERED: ipratropium/albuterol 3ml nebule NEB ONE (18:55)
[2020-10-06] MEDS ORDERED: predniSONE 20 mg tablet PO ONE (19:30)
[2020-10-06] MEDS ORDERED: albuterol 2.5 MG/3 ML nebule CONTNEB PRN (19:30)
[2020-10-06 19:35] LABS: BASOPHILS % (AUTO) 0.4 % (0-1); EOSINOPHILS # (AUTO) 0.3 X10'3 (0-0.9); EOSINOPHILS % (AUTO) 2.7 % (0-6); HEMATOCRIT 44.9 % (35.0-45.0); HEMOGLOBIN 14.8 g/dl (12.0-16.0); LYMPHOCYTES # (AUTO) 1.8 X10'3 (1.1-4.8); LYMPHOCYTES % (AUTO) 16.5 % (21-51); MEAN CORPUSCULAR HEMOGLOBIN 28.7 PG (27.0-31.0); MEAN CORPUSCULAR HGB CONC 32.9 g/dL (33.0-36.5); MEAN CORPUSCULAR VOLUME 87.1 FL (78-98); MEAN PLATELET VOLUME 8.9 FL (7.4-10.4); MONOCYTES # (AUTO) 1.3 X10'3 (0-0.9); MONOCYTES % (AUTO) 11.7 % (2-12); NEUTROPHILS # (AUTO) 7.6 X10'3 (1.8-7.7); NEUTROPHILS % (AUTO) 68.7 % (42-75); PLATELET COUNT 271 X10'3 (140-440); RED BLOOD COUNT 5.16 X10'6 (4.20-5.60); RED CELL DISTRIBUTION WIDTH 14.3 % (11.5-14.5); WHITE BLOOD COUNT 11.1 X10'3 (4.5-11.0)
[2020-10-06 19:48] LABS: ALANINE AMINOTRANSFERASE 34 U/L (12-78); ALBUMIN 3.4 G/DL (3.4-5.0); ALBUMIN/GLOBULIN RATIO 0.8 (1.1-1.5); ALKALINE PHOSPHATASE 78 IU/L (46-116); ANION GAP 8 (8-16); ASPARTATE AMINO TRANSFERASE 18 U/L (10-37); BILIRUBIN,TOTAL 0.3 MG/DL (0.1-1.0); BLOOD UREA NITROGEN 13 MG/DL (7-18); BUN/CREATININE RATIO 14.8 (6.6-38.0); CALCIUM 9.3 MG/DL (8.5-10.1); CHLORIDE 103 MMOL/L (99-107); CREATININE 0.88 MG/DL (0.40-0.90); GLUCOSE 111 MG/DL (70-104); POTASSIUM 3.7 MMOL/L (3.5-5.1); SODIUM 140 MMOL/L (135-145); TOTAL PROTEIN 7.5 G/DL (6.4-8.2); eGFR 69 ML/MIN
--- NOTE | 2020-10-06 19:55 | NUR ---
rt is been paged by shahid almonte but all are busy at this time.
[2020-10-06] MEDS ORDERED: aspirin 325mg tablet PO ONE (20:25)
--- NOTE | 2020-10-06 20:45 | NUR ---
cont neb given via a regular ban neb with filter. Tx lasts approx 30 min vs 1 hour. Tx completed now
[2020-10-06] MEDS ORDERED: iohexol 350MG/ML 100ml bottle IV ONE (22:28)
[2020-10-06] MEDS ORDERED: mag hydrox/Alum hydrox/simeth 30ml oral suspension PO PRN (22:45)
[2020-10-06] MEDS ORDERED: acetaminophen 325mg tablet PO PRN (22:45)
[2020-10-06] MEDS ORDERED: magnesium hydroxide 30ml (MOM) UD suspension PO PRN (22:45)
[2020-10-06] MEDS ORDERED: ondansetron/PF 4mg/2ml inj IV PRN (22:45)
[2020-10-06] MEDS ORDERED: hydrALAZINE 20mg/ml inj. IV PRN (23:00)
[2020-10-06] MEDS: ipratropium/albuterol 3ml nebule NEB SCH (23:13)
[2020-10-06] MEDS: normal saline 1000ml 1,000 ML IV SCH (23:37)
[2020-10-06] MEDS: hydrOXYzine 10 MG tablet PO SCH (23:37)
[2020-10-07 01:30] LABS: ALBUMIN 3.5 G/DL (3.4-5.0); ANION GAP 11 (8-16); BLOOD UREA NITROGEN 14 MG/DL (7-18); BUN/CREATININE RATIO 13.6 (6.6-38.0); CALCIUM 9.3 MG/DL (8.5-10.1); CHLORIDE 100 MMOL/L (99-107); CREATININE 1.03 MG/DL (0.40-0.90); GLUCOSE 224 MG/DL (70-104); POTASSIUM 3.6 MMOL/L (3.5-5.1); SODIUM 139 MMOL/L (135-145); TOTAL CARBON DIOXIDE 28.5 MMOL/L (24-32); eGFR 58 ML/MIN
[2020-10-07] MEDS: methylPREDNISolone sod succ 125mg/2ml vial IV SCH ×4 (02:08→20:05)
[2020-10-07 02:13] LABS: BASOPHILS % (AUTO) 0.1 % (0-1); EOSINOPHILS % (AUTO) 0.1 % (0-6); HEMATOCRIT 45.2 % (35.0-45.0); LYMPHOCYTES # (AUTO) 0.8 X10'3 (1.1-4.8); LYMPHOCYTES % (AUTO) 6.9 % (21-51); MEAN CORPUSCULAR HEMOGLOBIN 28.9 PG (27.0-31.0); MEAN CORPUSCULAR HGB CONC 33.1 g/dL (33.0-36.5); MEAN CORPUSCULAR VOLUME 87.3 FL (78-98); MEAN PLATELET VOLUME 9.3 FL (7.4-10.4); MONOCYTES # (AUTO) 0.2 X10'3 (0-0.9); MONOCYTES % (AUTO) 1.7 % (2-12); NEUTROPHILS % (AUTO) 91.2 % (42-75); PLATELET COUNT 245 X10'3 (140-440); RED BLOOD COUNT 5.17 X10'6 (4.20-5.60); RED CELL DISTRIBUTION WIDTH 14.2 % (11.5-14.5); WHITE BLOOD COUNT 12.1 X10'3 (4.5-11.0)
[2020-10-07] MEDS: ipratropium/albuterol 3ml nebule NEB SCH ×6 (03:07→23:21)
[2020-10-07] MEDS: aspirin 81mg tablet.DR PO SCH (08:00)
[2020-10-07] MEDS: atorvastatin 20mg tablet PO SCH (08:00)
[2020-10-07] MEDS: carVEDilol 3.125mg tablet PO SCH ×2 (08:00→20:03)
[2020-10-07] MEDS: ESCITALOPRAM OXALATE 5 MG TABLET PO SCH (08:01)
[2020-10-07] MEDS: amLODIPine 5mg tablet PO SCH (08:01)
[2020-10-07] MEDS: lisinopril 20mg tablet PO SCH ×2 (08:01→20:04)
[2020-10-07] MEDS: hydrOXYzine 10 MG tablet PO SCH ×3 (08:01→23:27)
[2020-10-07] MEDS: normal saline 1000ml 1,000 ML IV SCH (08:02)
[2020-10-07] MEDS: HYDROchlorothiazide 25mg tablet PO SCH (08:02)
[2020-10-07] MEDS: heparin, porcine 5000 units/ml vial SQ SCH ×2 (08:02→20:05)
[2020-10-07 09:00] VITALS: BP 167/67
[2020-10-07 11:00] VITALS: BP 166/76
[2020-10-07] MEDS: azithromycin 250mg tablet PO SCH (12:20)
[2020-10-07] MEDS: CefTRIAXone/D5W-Rocephin 1gm 50 ML IV SCH (12:23)
[2020-10-07 15:00] VITALS: BP 171/84
--- NOTE | 2020-10-07 15:01 | NUR ---
ERIC SALINAS 3015B: Pt in tears complaining of severe headache, pt's BP is 171/84, HR 90. PRN Hydralazine 10mg given with no effect. Please call or input orders for headache and highblood pressure. Thank you- Luther BERNAL ext [phone]
[2020-10-07] MEDS ORDERED: hydrALAZINE 20mg/ml inj. IV ONE (15:05)
[2020-10-07] MEDS: HYDROcodone/acetaminophen 5mg/325mg tablet PO PRN ×2 (15:29→22:08)
[2020-10-07 18:00] VITALS: BP 155/86
--- NOTE | 2020-10-07 18:52 | NUR ---
Patient in room PCU 3015. I have received report from [place] and had the opportunity to ask questions and assume patient care.
[2020-10-07] MEDS: lactobacillus rhamnosus 10,000 MMU CELLS/CAPSULE PO SCH (20:03)
[2020-10-07 22:00] VITALS: BP 168/84
[2020-10-08 02:00] VITALS: BP 144/79
[2020-10-08] MEDS: methylPREDNISolone sod succ 125mg/2ml vial IV SCH ×3 (02:30→14:22)
[2020-10-08] MEDS: ipratropium/albuterol 3ml nebule NEB SCH ×6 (03:33→23:26)
[2020-10-08 06:00] VITALS: BP 142/63
--- NOTE | 2020-10-08 06:17 | NUR ---
Problems reprioritized. Patient report given, questions answered & plan of care reviewed with Gray.
[2020-10-08 07:09] LABS: BASOPHILS % (AUTO) 0.1 % (0-1); EOSINOPHILS % (AUTO) 0 % (0-6); HEMATOCRIT 45.8 % (35.0-45.0); HEMOGLOBIN 15.1 g/dl (12.0-16.0); LYMPHOCYTES # (AUTO) 1.4 X10'3 (1.1-4.8); LYMPHOCYTES % (AUTO) 5.7 % (21-51); MEAN CORPUSCULAR HEMOGLOBIN 28.7 PG (27.0-31.0); MEAN CORPUSCULAR HGB CONC 32.9 g/dL (33.0-36.5); MEAN CORPUSCULAR VOLUME 87.3 FL (78-98); MEAN PLATELET VOLUME 8.8 FL (7.4-10.4); MONOCYTES # (AUTO) 0.5 X10'3 (0-0.9); MONOCYTES % (AUTO) 2.2 % (2-12); NEUTROPHILS # (AUTO) 22.9 X10'3 (1.8-7.7); PLATELET COUNT 288 X10'3 (140-440); RED BLOOD COUNT 5.25 X10'6 (4.20-5.60); RED CELL DISTRIBUTION WIDTH 14.7 % (11.5-14.5); WHITE BLOOD COUNT 24.9 X10'3 (4.5-11.0)
[2020-10-08 07:17] LABS: ANION GAP 11 (8-16); BLOOD UREA NITROGEN 17 MG/DL (7-18); BUN/CREATININE RATIO 21.5 (6.6-38.0); CALCIUM 9.2 MG/DL (8.5-10.1); CHLORIDE 103 MMOL/L (99-107); CREATININE 0.79 MG/DL (0.40-0.90); GLUCOSE 150 MG/DL (70-104); POTASSIUM 3.7 MMOL/L (3.5-5.1); SODIUM 141 MMOL/L (135-145); TOTAL CARBON DIOXIDE 27.1 MMOL/L (24-32); eGFR 78 ML/MIN
[2020-10-08] MEDS: CefTRIAXone/D5W-Rocephin 1gm 50 ML IV SCH (07:20)
[2020-10-08] MEDS: lactobacillus rhamnosus 10,000 MMU CELLS/CAPSULE PO SCH ×2 (07:23→19:38)
[2020-10-08] MEDS: atorvastatin 20mg tablet PO SCH (07:23)
[2020-10-08] MEDS: carVEDilol 3.125mg tablet PO SCH ×2 (07:24→19:38)
[2020-10-08] MEDS: azithromycin 250mg tablet PO SCH (07:24)
[2020-10-08] MEDS: hydrOXYzine 10 MG tablet PO SCH ×2 (07:24→15:34)
[2020-10-08] MEDS: HYDROchlorothiazide 25mg tablet PO SCH (07:24)
[2020-10-08] MEDS: HYDROcodone/acetaminophen 5mg/325mg tablet PO PRN ×2 (07:25→15:36)
[2020-10-08] MEDS: aspirin 81mg tablet.DR PO SCH (07:25)
[2020-10-08] MEDS: amLODIPine 5mg tablet PO SCH (07:25)
[2020-10-08] MEDS: ESCITALOPRAM OXALATE 5 MG TABLET PO SCH (07:25)
[2020-10-08] MEDS: lisinopril 20mg tablet PO SCH ×2 (07:25→19:38)
[2020-10-08] MEDS: heparin, porcine 5000 units/ml vial SQ SCH ×2 (07:26→19:38)
[2020-10-08 11:00] VITALS: BP 154/80
[2020-10-08 15:00] VITALS: BP 121/62
[2020-10-08 18:00] VITALS: BP 149/73
[2020-10-08] MEDS ORDERED: aminophylline 250mg/10ml inj. IV PRN (18:10)
[2020-10-08] MEDS ORDERED: regadenoson 0.4mg/5ml syringe IV ONE (18:10)
[2020-10-08] MEDS ORDERED: nitroGLYCERIN 0.4mg SUBLingual tab SL PRN (18:10)
[2020-10-08] MEDS ORDERED: metoprolol tartrate 1mg/ml inj IV PRN (18:10)
[2020-10-08 22:00] VITALS: BP 139/70
[2020-10-08 23:12] LABS: CLARITY,URINE CLEAR (Clear); COLOR,URINE YELLOW (Yellow); GLUCOSE, URINE NEGATIVE (Neg); KETONES,URINE NEGATIVE (Neg); LEUKOCYTE ESTERASE ,URINE NEGATIVE (Neg); NITRITES, URINE NEGATIVE (Neg); OCCULT BLOOD,URINE NEGATIVE (Neg); PROTEIN,URINE 30 mg/dl (Neg); UROBILINOGEN,URINE 0.2 E.U/dL (0.2-1.0)
[2020-10-08 23:15] LABS: URINE AMPHETAMINE SCREEN NEGATIVE (Neg); URINE BARBITUATE SCREEN NEGATIVE (Neg); URINE BENZODIAZEPINES SCREEN NEGATIVE (Neg); URINE CANNABINOID SCREEN POSITIVE (Neg); URINE COCAINE SCREEN NEGATIVE (Neg); URINE METHADONE SCREEN NEGATIVE (Neg); URINE OPIATE SCREEN POSITIVE (Neg); URINE PHENCYCLIDINE SCREEN NEGATIVE (Neg)
[2020-10-08 23:22] LABS: BACTERIA,URINE NONE SEEN /HPF (Neg); HYALINE CASTS 0-3 /LPF (NEGATIVE); MUCUS STRANDS FEW /LPF (Neg); RBC,URINE NONE SEEN /HPF (0-2); SQUAMOUS EPITHELIAL CELL,UR MANY /LPF (FEW); UA COLLECTION TYPE NON-SPECIFIED; WBC,URINE 0-4 /HPF (0-4)
[2020-10-08 23:27] LABS: URIC ACID CRYSTALS 1+ /HPF (NEGATIVE); YEAST FEW /HPF (NEGATIVE)
[2020-10-09] VITALS (15 sets, daily range): BP systolic 132–185; BP diastolic 63–87
[2020-10-09] MEDS: methylPREDNISolone sod succ 125mg/2ml vial IV SCH ×3 (00:21→16:00)
[2020-10-09] MEDS: hydrOXYzine 10 MG tablet PO SCH ×4 (00:21→23:53)
[2020-10-09] MEDS: ipratropium/albuterol 3ml nebule NEB SCH ×6 (03:25→23:18)
--- NOTE | 2020-10-09 06:17 | NUR ---
Problems reprioritized. Patient report given, questions answered & plan of care reviewed with GABE Sloan.
[2020-10-09 06:19] LABS: ANION GAP 7 (8-16); BLOOD UREA NITROGEN 23 MG/DL (7-18); BUN/CREATININE RATIO 28.8 (6.6-38.0); CALCIUM 8.7 MG/DL (8.5-10.1); CHLORIDE 106 MMOL/L (99-107); GLUCOSE 115 MG/DL (70-104); POTASSIUM 3.6 MMOL/L (3.5-5.1); SODIUM 143 MMOL/L (135-145); TOTAL CARBON DIOXIDE 30.1 MMOL/L (24-32); eGFR 77 ML/MIN
[2020-10-09 06:22] LABS: BASOPHILS % (AUTO) 0.1 % (0-1); EOSINOPHILS % (AUTO) 0 % (0-6); HEMATOCRIT 44.9 % (35.0-45.0); LYMPHOCYTES # (AUTO) 2.3 X10'3 (1.1-4.8); LYMPHOCYTES % (AUTO) 9.4 % (21-51); MEAN CORPUSCULAR HEMOGLOBIN 29.2 PG (27.0-31.0); MEAN CORPUSCULAR HGB CONC 33.5 g/dL (33.0-36.5); MEAN CORPUSCULAR VOLUME 87.3 FL (78-98); MEAN PLATELET VOLUME 8.8 FL (7.4-10.4); MONOCYTES # (AUTO) 1.2 X10'3 (0-0.9); NEUTROPHILS % (AUTO) 85.5 % (42-75); PLATELET COUNT 287 X10'3 (140-440); RED BLOOD COUNT 5.15 X10'6 (4.20-5.60); RED CELL DISTRIBUTION WIDTH 14.6 % (11.5-14.5); WHITE BLOOD COUNT 24.6 X10'3 (4.5-11.0)
[2020-10-09] MEDS: carVEDilol 3.125mg tablet PO SCH ×2 (08:00→19:10)
[2020-10-09] MEDS: HYDROchlorothiazide 25mg tablet PO SCH (08:00)
[2020-10-09] MEDS: heparin, porcine 5000 units/ml vial SQ SCH ×2 (08:00→19:10)
[2020-10-09] MEDS: azithromycin 250mg tablet PO SCH (08:00)
[2020-10-09] MEDS: lisinopril 20mg tablet PO SCH ×2 (08:00→19:10)
[2020-10-09] MEDS: CefTRIAXone/D5W-Rocephin 1gm 50 ML IV SCH (08:00)
[2020-10-09] MEDS: ESCITALOPRAM OXALATE 5 MG TABLET PO SCH (08:00)
[2020-10-09] MEDS: atorvastatin 20mg tablet PO SCH (08:00)
[2020-10-09] MEDS: aspirin 81mg tablet.DR PO SCH (08:00)
[2020-10-09] MEDS: lactobacillus rhamnosus 10,000 MMU CELLS/CAPSULE PO SCH ×2 (08:00→19:10)
[2020-10-09] MEDS: amLODIPine 5mg tablet PO SCH (08:00)
[2020-10-09] MEDS: pantoprazole 40mg Tablet.DR PO SCH (17:43)
[2020-10-09] MEDS: methylPREDNISolone sod succ/PF 40mg inj. IV SCH (19:09)
[2020-10-10] MEDS ORDERED: Melatonin 3mg tablet PO PRN (00:55)
[2020-10-10 02:00] VITALS: BP 135/70
[2020-10-10] MEDS: ipratropium/albuterol 3ml nebule NEB SCH ×2 (02:42→07:29)
[2020-10-10 06:00] VITALS: BP 150/68
[2020-10-10 06:40] LABS: BASOPHILS % (AUTO) 0.2 % (0-1); EOSINOPHILS % (AUTO) 0 % (0-6); HEMATOCRIT 46.1 % (35.0-45.0); HEMOGLOBIN 15.3 g/dl (12.0-16.0); LYMPHOCYTES % (AUTO) 11.5 % (21-51); MEAN CORPUSCULAR HEMOGLOBIN 29.1 PG (27.0-31.0); MEAN CORPUSCULAR HGB CONC 33.2 g/dL (33.0-36.5); MEAN CORPUSCULAR VOLUME 87.5 FL (78-98); MEAN PLATELET VOLUME 8.5 FL (7.4-10.4); MONOCYTES % (AUTO) 5.7 % (2-12); NEUTROPHILS # (AUTO) 14.3 X10'3 (1.8-7.7); NEUTROPHILS % (AUTO) 82.6 % (42-75); PLATELET COUNT 299 X10'3 (140-440); RED BLOOD COUNT 5.26 X10'6 (4.20-5.60); RED CELL DISTRIBUTION WIDTH 14.3 % (11.5-14.5); WHITE BLOOD COUNT 17.3 X10'3 (4.5-11.0)
[2020-10-10 06:56] LABS: ALBUMIN 2.9 G/DL (3.4-5.0); ANION GAP 6 (8-16); BLOOD UREA NITROGEN 23 MG/DL (7-18); BUN/CREATININE RATIO 27.7 (6.6-38.0); CALCIUM 8.4 MG/DL (8.5-10.1); CHLORIDE 105 MMOL/L (99-107); CREATININE 0.83 MG/DL (0.40-0.90); GLUCOSE 126 MG/DL (70-104); POTASSIUM 3.6 MMOL/L (3.5-5.1); SODIUM 141 MMOL/L (135-145); TOTAL CARBON DIOXIDE 29.7 MMOL/L (24-32); eGFR 74 ML/MIN
[2020-10-10] MEDS: azithromycin 250mg tablet PO SCH (07:08)
[2020-10-10] MEDS: aspirin 81mg tablet.DR PO SCH (07:08)
[2020-10-10] MEDS: atorvastatin 20mg tablet PO SCH (07:08)
[2020-10-10] MEDS: ESCITALOPRAM OXALATE 5 MG TABLET PO SCH (07:08)
[2020-10-10] MEDS: methylPREDNISolone sod succ/PF 40mg inj. IV SCH (07:08)
[2020-10-10] MEDS: amLODIPine 5mg tablet PO SCH (07:08)
[2020-10-10] MEDS: pantoprazole 40mg Tablet.DR PO SCH (07:08)
[2020-10-10] MEDS: carVEDilol 3.125mg tablet PO SCH (07:09)
[2020-10-10] MEDS: heparin, porcine 5000 units/ml vial SQ SCH (07:16)
[2020-10-10] MEDS: hydrOXYzine 10 MG tablet PO SCH (07:16)
[2020-10-10 07:17] VITALS: BP_SYST 150
[2020-10-10] MEDS: CefTRIAXone/D5W-Rocephin 1gm 50 ML IV SCH (07:17)
[2020-10-10] MEDS: lisinopril 20mg tablet PO SCH (07:17)
[2020-10-10] MEDS: HYDROchlorothiazide 25mg tablet PO SCH (07:17)
[2020-10-10] MEDS: lactobacillus rhamnosus 10,000 MMU CELLS/CAPSULE PO SCH (08:32)
[2020-10-10] MEDS ORDERED: PANT40TA54 PO (08:44)
[2020-10-10] MEDS ORDERED: BUDE10.22 INH (08:44)
[2020-10-10] MEDS ORDERED: LACT1CAP26 PO (08:44)
[2020-10-10] MEDS ORDERED: CEFD300C3 PO (08:44)
[2020-10-10] MEDS ORDERED: PRED10TA23 PO (08:44)
[2020-10-10] MEDS ORDERED: Melatonin 3mg tablet PO SCH (21:00)
== END 2020-10-10 10:00 | disposition home or self-care (01) | DRG 140 ==
LOC: ER 18:03 → ED HOLD 22:43 → PCU 3S 10-07 08:40
PROVIDERS: ADMIT Family Medicine; ATTEND Family Medicine
PROC: 4A02XM4 Measurement of Cardiac Total Activity, External Approach (ICD-10-PCS; principal; 2020-10-09)
PROC: 3E033HZ Introduction of Radioactive Substance into Peripheral Vein, Percutaneous Approach (ICD-10-PCS; 2020-10-09)
DX: J44.1 Chronic obstructive pulmonary disease with (acute) exacerbation (principal); I21.A1 Myocardial infarction type 2; J96.20 Acute and chronic respiratory failure, unspecified whether with hypoxia or hypercapnia; J20.9 Acute bronchitis, unspecified; D72.829 Elevated white blood cell count, unspecified; E66.2 Morbid (severe) obesity with alveolar hypoventilation; J44.0 Chronic obstructive pulmonary disease with (acute) lower respiratory infection; E78.00 Pure hypercholesterolemia, unspecified; E78.5 Hyperlipidemia, unspecified; F12.90 Cannabis use, unspecified, uncomplicated; F17.200 Nicotine dependence, unspecified, uncomplicated; F32.9 Major depressive disorder, single episode, unspecified; I10 Essential (primary) hypertension; I25.10 Atherosclerotic heart disease of native coronary artery without angina pectoris; Z82.49 Family history of ischemic heart disease and other diseases of the circulatory system; Z86.73 Personal history of transient ischemic attack (TIA), and cerebral infarction without residual deficits; Z98.891 History of uterine scar from previous surgery; Z68.42 Body mass index [BMI] 45.0-49.9, adult
CPT/HCPCS: 36415; 71045; 71275; 78452; 80048; 80053; 80305; 81001; 83880; 84484; 85025; 87040; 87081; 87635; 93005; 93017; 93306; 94640; 94760; 99285; A7015; A9500; C9803; G0378; J0280; J0360; J0696; J1644; J2785; J2920; J2930; J7030; J7512; Q9967

== ENCOUNTER 2021-08-13 12:43 | Inpatient (IN) | payer MEDICAID ==
[~2021-08-13] VITALS: Ht 144.8 cm; Wt 111.4 kg
[~2021-08-13 12:43] MED LIST changes: +BUDE10.22 INH; +LACT1CAP26 PO; +PANT40TA54 PO; +magnesium sulf 1 GM/2 ML ONE
--- NOTE | 2021-08-13 12:50 | NUR ---
MD at bedside to assess.
[2021-08-13] MEDS ORDERED: magnesium 2GM in 50ml NS 50 ML IV ONE (12:55)
[2021-08-13] MEDS ORDERED: diltiazem 5mg/ml 5ml inj. IV ONE ×6 (13:04→13:55)
[2021-08-13 13:30] LABS: BASOPHILS % (AUTO) 0.3 % (0-1); EOSINOPHILS % (AUTO) 0.2 % (0-6); HEMATOCRIT 44.5 % (35.0-45.0); HEMOGLOBIN 14.9 g/dl (12.0-16.0); LYMPHOCYTES # (AUTO) 0.8 X10'3 (1.1-4.8); LYMPHOCYTES % (AUTO) 8.4 % (21-51); MEAN CORPUSCULAR HEMOGLOBIN 27.7 PG (27.0-31.0); MEAN CORPUSCULAR HGB CONC 33.6 g/dL (33.0-36.5); MEAN CORPUSCULAR VOLUME 82.6 FL (78-98); MEAN PLATELET VOLUME 8.4 FL (7.4-10.4); MONOCYTES # (AUTO) 1.3 X10'3 (0-0.9); MONOCYTES % (AUTO) 13.3 % (2-12); NEUTROPHILS # (AUTO) 7.7 X10'3 (1.8-7.7); NEUTROPHILS % (AUTO) 77.8 % (42-75); PLATELET COUNT 240 X10'3 (140-440); RED BLOOD COUNT 5.38 X10'6 (4.20-5.60); RED CELL DISTRIBUTION WIDTH 14.6 % (11.5-14.5); WHITE BLOOD COUNT 9.9 X10'3 (4.5-11.0)
[2021-08-13] MEDS: diltiazem-NS 100mg/100ml 100 ML IV SCH ×3 (13:36→20:18)
[2021-08-13 13:45] LABS: ALANINE AMINOTRANSFERASE 80 U/L (12-78); ALBUMIN 2.9 G/DL (3.4-5.0); ALBUMIN/GLOBULIN RATIO 0.7 (1.1-1.5); ALKALINE PHOSPHATASE 73 IU/L (46-116); ANION GAP 9 (8-16); ASPARTATE AMINO TRANSFERASE 74 U/L (10-37); BILIRUBIN,TOTAL 0.5 MG/DL (0.1-1.0); BLOOD UREA NITROGEN 15 MG/DL (7-18); BUN/CREATININE RATIO 15.3 (6.6-38.0); CALCIUM 7.8 MG/DL (8.5-10.1); CHLORIDE 93 MMOL/L (99-107); CREATININE 0.98 MG/DL (0.40-0.90); GLUCOSE 134 MG/DL (70-104); POTASSIUM 3.1 MMOL/L (3.5-5.1); SODIUM 131 MMOL/L (135-145); TOTAL CARBON DIOXIDE 28.7 MMOL/L (24-32); eGFR 61 ML/MIN
[2021-08-13] MEDS ORDERED: amiodarone 150mg/dext, iso-os 100 ML IV ONE (14:40)
[2021-08-13] MEDS ORDERED: CARV6.253 PO (14:43)
[2021-08-13] MEDS ORDERED: BUDE10.27 PO (14:43)
--- NOTE | 2021-08-13 14:45 | NUR ---
[facility] Received new orders for Amio gtt, continue diltiazem for now.
[2021-08-13 14:55] LABS: D-DIMER 0.72 MG/L FEU (0-0.50)
[2021-08-13] MEDS ORDERED: magnesium 4gm in 100ml NS 100 ML IV PRN (15:45)
[2021-08-13] MEDS ORDERED: PERFLUTREN PROTEIN-A MICROSPHR (Optison) 0.22 MG/ML 3ML VIAL IV ONE (15:45)
[2021-08-13] MEDS ORDERED: ondansetron/PF 4mg/2ml inj IV PRN (15:45)
[2021-08-13] MEDS ORDERED: potassium Cl 20 mEq SR tablet PO PRN (15:45)
[2021-08-13] MEDS ORDERED: magnesium 2GM in 50ml NS 50 ML IV PRN (15:45)
[2021-08-13] MEDS ORDERED: acetaminophen 325mg tablet PO PRN (15:45)
[2021-08-13] MEDS ORDERED: magnesium Cl slow-release 64mg tablet PO PRN (15:45)
[2021-08-13] MEDS ORDERED: potassium CL 10mEq/100ml bag 100 ML IV PRN (15:45)
[2021-08-13 17:29] LABS: POTASSIUM 3.2 MMOL/L (3.5-5.1)
[2021-08-13 17:54] LABS: ABG BASE EXCESS 0.1 mmol/L (-2.0-2.0); ABG HCO3 25.7 mmol/L (22.0-26.0); ABG OXYGEN SATURATION 95.9 % (94-97); ABG PCO2 (T) 45.1 mmHg (32.0-45.0); ABG PO2 (T) 84.6 mmHg (75.0-100.0); ALLEN'S TEST POSITIVE; FCOHb 0.6 % (0.0-3.9); FMetHb 0.1 % (0.0-1.5); FO2Hb 95.2 % (94-97); RESPIRATORY RATE 8 b/min; TOTAL HEMOGLOBIN 15.7 G/dl (12.0-16.0)
[2021-08-13] MEDS: potassium Cl 20 mEq SR tablet PO PRN (17:55)
[2021-08-13] MEDS: normal saline 1000ml 1,000 ML IV SCH (17:56)
[2021-08-13] MEDS: cefTRIAXone 1g/NS 100ml IVPB 100 ML IV SCH (17:56)
--- NOTE | 2021-08-13 18:50 | NUR ---
Pt PIV site c/d/i. Pt pink, alert. Bed in lowest position, wheels locked, rail 2/2 up. Will continue to monitor pt for acute changes and needs.
--- NOTE | 2021-08-13 18:51 | NUR ---
Pt all IV drips not connected to pt. NS and Rocephin infusing. 20G PIV to right chest wall. Site c/d/i s complication. Will speak with ERP to clarify orders for IV drips and possible new IV access.
[2021-08-13] MEDS: ipratropium/albuterol 3ml nebule NEB SCH ×3 (19:09→23:28)
[2021-08-13] MEDS: K and/or MAG REPLACEMENT MC SCH (19:55)
[2021-08-13] MEDS ORDERED: methylPREDNISolone sod succ 125mg/2ml vial IV ONE (20:00)
--- NOTE | 2021-08-13 20:15 | NUR ---
IVÁN Carrizales, D/C Nelida and clint bell now. Continue to look for PIV access to have better access than chest wall PIV. Nasrin Parker RN
[2021-08-13] MEDS: amiodarone/D5 360MG/200ML BAG 200 ML IV SCH ×2 (20:17→20:18)
--- NOTE | 2021-08-13 21:00 | NUR ---
Pt PIV site c/d/i. Pt pink, alert. Bed in lowest position, wheels locked, rail 2/2 up. Will continue to monitor pt for acute changes and needs.
--- NOTE | 2021-08-13 22:00 | NUR ---
Pt PIV site c/d/i. Pt pink, alert. Bed in lowest position, wheels locked, rail 2/2 up. Will continue to monitor pt for acute changes and needs.
--- NOTE | 2021-08-13 23:36 | NUR ---
Pt PIV site c/d/i. Pt pink, alert. Bed in lowest position, wheels locked, rail 2/2 up. Will continue to monitor pt for acute changes and needs.
--- NOTE | 2021-08-14 00:40 | NUR ---
Pt PIV site c/d/i. Pt pink, alert. Bed in lowest position, wheels locked, rail 2/2 up. Will continue to monitor pt for acute changes and needs.
--- NOTE | 2021-08-14 01:30 | NUR ---
Pt PIV site c/d/i. Pt pink, alert. Bed in lowest position, wheels locked, rail 2/2 up. Will continue to monitor pt for acute changes and needs.
--- NOTE | 2021-08-14 01:32 | NUR ---
Mark daugherty in [facility] - 08/14/21 at 0132 by ANTOINE Pt PIV site c/d/i. Pt pink, alert. Bed in lowest position, wheels locked, rail 2/2 up. Will continue to monitor pt for acute changes and needs.
--- NOTE | 2021-08-14 02:08 | NUR ---
Pt pink, alert. Bed in lowest position, wheels locked, rail 2/2 up. Will continue to monitor pt for acute changes and needs. Pt laying supine, able to reposition self prn.
[2021-08-14] MEDS: ipratropium/albuterol 3ml nebule NEB SCH ×6 (03:05→23:52)
[2021-08-14 03:13] LABS: BASOPHILS % (AUTO) 0.2 % (0-1); EOSINOPHILS % (AUTO) 0 % (0-6); HEMATOCRIT 44.6 % (35.0-45.0); HEMOGLOBIN 15.2 g/dl (12.0-16.0); LYMPHOCYTES # (AUTO) 0.9 X10'3 (1.1-4.8); LYMPHOCYTES % (AUTO) 11.1 % (21-51); MEAN CORPUSCULAR HEMOGLOBIN 28.5 PG (27.0-31.0); MEAN PLATELET VOLUME 8.7 FL (7.4-10.4); MONOCYTES # (AUTO) 0.2 X10'3 (0-0.9); MONOCYTES % (AUTO) 2.8 % (2-12); NEUTROPHILS # (AUTO) 6.7 X10'3 (1.8-7.7); NEUTROPHILS % (AUTO) 85.9 % (42-75); PLATELET COUNT 213 X10'3 (140-440); RED BLOOD COUNT 5.31 X10'6 (4.20-5.60); RED CELL DISTRIBUTION WIDTH 14.6 % (11.5-14.5); WHITE BLOOD COUNT 7.8 X10'3 (4.5-11.0)
[2021-08-14 03:26] LABS: ALBUMIN 2.8 G/DL (3.4-5.0); ANION GAP 9 (8-16); BLOOD UREA NITROGEN 21 MG/DL (7-18); BUN/CREATININE RATIO 18.6 (6.6-38.0); CHLORIDE 100 MMOL/L (99-107); CREATININE 1.13 MG/DL (0.40-0.90); GLUCOSE 186 MG/DL (70-104); MAGNESIUM 2.3 MG/DL (1.5-2.4); POTASSIUM 3.4 MMOL/L (3.5-5.1); SODIUM 138 MMOL/L (135-145); TOTAL CARBON DIOXIDE 28.7 MMOL/L (24-32); eGFR 52 ML/MIN
--- NOTE | 2021-08-14 05:00 | NUR ---
Pt pink, alert. Bed in lowest position, wheels locked, rail 2/2 up. Will continue to monitor pt for acute changes and needs. Pt laying left side, able to reposition self prn.
--- NOTE | 2021-08-14 05:41 | NUR ---
Pt pink, alert. Bed in lowest position, wheels locked, rail 2/2 up. Will continue to monitor pt for acute changes and needs. Pt laying supine, able to reposition self prn. Handoff report to Days[facility] RN
[2021-08-14] MEDS: K and/or MAG REPLACEMENT MC SCH ×2 (08:00→19:59)
[2021-08-14] MEDS: lisinopril 20mg tablet PO SCH ×2 (09:03→20:06)
[2021-08-14] MEDS: amLODIPine 5mg tablet PO SCH (09:04)
[2021-08-14] MEDS: aspirin 81mg, enteric-coated 1 TAB TABLET.DR PO SCH (09:04)
[2021-08-14] MEDS: atorvastatin 20mg tablet PO SCH (09:04)
[2021-08-14] MEDS: carvedilol 6.25mg tablet PO SCH ×2 (09:04→20:06)
[2021-08-14] MEDS: cefTRIAXone 1g/NS 100ml IVPB 100 ML IV SCH (09:05)
[2021-08-14] MEDS: potassium Cl 20 mEq SR tablet PO PRN (09:05)
[2021-08-14] MEDS: ESCITALOPRAM OXALATE 5 MG TABLET PO SCH (09:05)
[2021-08-14 13:50] VITALS: BP 119/47
[2021-08-14 15:11] VITALS: BP 89/35
[2021-08-14 18:00] VITALS: BP 116/71
[2021-08-14 22:00] VITALS: BP 99/49
[2021-08-15 02:00] VITALS: BP 109/50
[2021-08-15] MEDS: ipratropium/albuterol 3ml nebule NEB SCH ×5 (03:00→19:30)
[2021-08-15 06:38] LABS: ALBUMIN 2.8 G/DL (3.4-5.0); ANION GAP 10 (8-16); BLOOD UREA NITROGEN 33 MG/DL (7-18); BUN/CREATININE RATIO 32.7 (6.6-38.0); CALCIUM 8.5 MG/DL (8.5-10.1); CHLORIDE 107 MMOL/L (99-107); CREATININE 1.01 MG/DL (0.40-0.90); GLUCOSE 97 MG/DL (70-104); MAGNESIUM 1.6 MG/DL (1.5-2.4); POTASSIUM 3.7 MMOL/L (3.5-5.1); SODIUM 143 MMOL/L (135-145); TOTAL CARBON DIOXIDE 26.3 MMOL/L (24-32); eGFR 59 ML/MIN
[2021-08-15 07:30] VITALS: BP 120/53
[2021-08-15] MEDS: K and/or MAG REPLACEMENT MC SCH ×2 (07:43→20:00)
[2021-08-15] MEDS: cefTRIAXone 1g/NS 100ml IVPB 100 ML IV SCH (07:50)
[2021-08-15] MEDS: carvedilol 6.25mg tablet PO SCH ×2 (07:51→19:16)
[2021-08-15] MEDS: ESCITALOPRAM OXALATE 5 MG TABLET PO SCH (07:51)
[2021-08-15] MEDS: atorvastatin 20mg tablet PO SCH (07:52)
[2021-08-15] MEDS: amLODIPine 5mg tablet PO SCH (07:52)
[2021-08-15] MEDS: lisinopril 20mg tablet PO SCH ×2 (07:52→19:17)
[2021-08-15] MEDS: aspirin 81mg, enteric-coated 1 TAB TABLET.DR PO SCH (07:52)
[2021-08-15 08:37] LABS: BASOPHILS % (AUTO) 0.3 % (0-1); EOSINOPHILS % (AUTO) 0 % (0-6); HEMATOCRIT 45.7 % (35.0-45.0); HEMOGLOBIN 15.1 g/dl (12.0-16.0); LYMPHOCYTES # (AUTO) 3.1 X10'3 (1.1-4.8); LYMPHOCYTES % (AUTO) 24.4 % (21-51); MEAN CORPUSCULAR HEMOGLOBIN 27.9 PG (27.0-31.0); MEAN CORPUSCULAR VOLUME 84.7 FL (78-98); MEAN PLATELET VOLUME 8.7 FL (7.4-10.4); MONOCYTES # (AUTO) 0.7 X10'3 (0-0.9); MONOCYTES % (AUTO) 5.6 % (2-12); NEUTROPHILS # (AUTO) 8.9 X10'3 (1.8-7.7); NEUTROPHILS % (AUTO) 69.7 % (42-75); PLATELET COUNT 273 X10'3 (140-440); RED CELL DISTRIBUTION WIDTH 14.9 % (11.5-14.5); WHITE BLOOD COUNT 12.7 X10'3 (4.5-11.0)
[2021-08-15 11:39] VITALS: BP 112/43
[2021-08-15] MEDS ORDERED: methylPREDNISolone sod succ 125mg/2ml vial IV ONE (12:10)
[2021-08-15] MEDS: normal saline 1000ml 1,000 ML IV SCH (15:45)
[2021-08-15 16:34] VITALS: BP 115/46
[2021-08-15 18:00] VITALS: BP 128/65
--- NOTE | 2021-08-15 18:30 | NUR ---
Patient in room PCU 3028. I have received report from Marlon BERNAL and had the opportunity to ask questions and assume patient care.
[2021-08-15] MEDS: methylPREDNISolone sod succ/PF 40mg inj. IV SCH (19:16)
[2021-08-15 22:00] VITALS: BP 118/55
[2021-08-16] VITALS (8 sets, daily range): BP systolic 103–185; BP diastolic 54–87
[2021-08-16] MEDS: ipratropium/albuterol 3ml nebule NEB SCH ×7 (00:10→23:24)
[2021-08-16 06:02] LABS: ALBUMIN 2.8 G/DL (3.4-5.0); ANION GAP 4 (8-16); BLOOD UREA NITROGEN 24 MG/DL (7-18); BUN/CREATININE RATIO 23.1 (6.6-38.0); CALCIUM 8.8 MG/DL (8.5-10.1); CHLORIDE 109 MMOL/L (99-107); CREATININE 1.04 MG/DL (0.40-0.90); GLUCOSE 195 MG/DL (70-104); MAGNESIUM 1.7 MG/DL (1.5-2.4); SODIUM 143 MMOL/L (135-145); TOTAL CARBON DIOXIDE 29.8 MMOL/L (24-32); eGFR 57 ML/MIN
[2021-08-16 06:24] LABS: BASOPHILS % (AUTO) 0.1 % (0-1); EOSINOPHILS % (AUTO) 0 % (0-6); HEMATOCRIT 42.6 % (35.0-45.0); HEMOGLOBIN 14.2 g/dl (12.0-16.0); LYMPHOCYTES # (AUTO) 1.2 X10'3 (1.1-4.8); LYMPHOCYTES % (AUTO) 10.4 % (21-51); MEAN CORPUSCULAR HEMOGLOBIN 28.4 PG (27.0-31.0); MEAN CORPUSCULAR HGB CONC 33.3 g/dL (33.0-36.5); MEAN CORPUSCULAR VOLUME 85.3 FL (78-98); MEAN PLATELET VOLUME 8.9 FL (7.4-10.4); MONOCYTES # (AUTO) 0.6 X10'3 (0-0.9); MONOCYTES % (AUTO) 5.4 % (2-12); NEUTROPHILS # (AUTO) 9.7 X10'3 (1.8-7.7); NEUTROPHILS % (AUTO) 84.1 % (42-75); PLATELET COUNT 231 X10'3 (140-440); RED CELL DISTRIBUTION WIDTH 15.2 % (11.5-14.5); WHITE BLOOD COUNT 11.6 X10'3 (4.5-11.0)
--- NOTE | 2021-08-16 06:48 | NUR ---
Problems reprioritized. Patient report given, questions answered & plan of care reviewed with Rashawn BERNAL.
[2021-08-16] MEDS: methylPREDNISolone sod succ/PF 40mg inj. IV SCH ×2 (08:06→20:11)
[2021-08-16] MEDS: ESCITALOPRAM OXALATE 5 MG TABLET PO SCH (08:06)
[2021-08-16] MEDS: cefTRIAXone 1g/NS 100ml IVPB 100 ML IV SCH (08:06)
[2021-08-16] MEDS: amLODIPine 5mg tablet PO SCH (08:09)
[2021-08-16] MEDS: atorvastatin 20mg tablet PO SCH (08:10)
[2021-08-16] MEDS: carvedilol 6.25mg tablet PO SCH ×2 (08:10→20:11)
[2021-08-16] MEDS: lisinopril 20mg tablet PO SCH ×2 (08:10→20:10)
[2021-08-16] MEDS: aspirin 81mg, enteric-coated 1 TAB TABLET.DR PO SCH (08:10)
[2021-08-16] MEDS: K and/or MAG REPLACEMENT MC SCH ×2 (08:11→19:55)
--- NOTE | 2021-08-16 18:40 | NUR ---
Patient in room PCU 3028. I have received report from Paulo BERNAL and had the opportunity to ask questions and assume patient care.
--- NOTE | 2021-08-16 20:34 | NUR ---
Called mD for tylenol order for mild pain.
[2021-08-16] MEDS ORDERED: acetaminophen 325mg tablet PO PRN (20:35)
[2021-08-17 02:00] VITALS: BP 148/72
[2021-08-17] MEDS: ipratropium/albuterol 3ml nebule NEB SCH ×3 (03:10→11:35)
[2021-08-17 06:00] VITALS: BP 157/82
--- NOTE | 2021-08-17 06:33 | NUR ---
Patient did not want to wear scd's last night. encouraged ankle pumps which she stated that she was doing. Addendum: 08/17/21 at 0634 by Courtney Banerjee RN Amended: Links added.
[2021-08-17 06:46] LABS: BASOPHILS % (AUTO) 0 % (0-1); EOSINOPHILS % (AUTO) 0 % (0-6); HEMATOCRIT 41.6 % (35.0-45.0); HEMOGLOBIN 13.5 g/dl (12.0-16.0); LYMPHOCYTES # (AUTO) 1.5 X10'3 (1.1-4.8); LYMPHOCYTES % (AUTO) 10.8 % (21-51); MEAN CORPUSCULAR HEMOGLOBIN 27.2 PG (27.0-31.0); MEAN CORPUSCULAR HGB CONC 32.3 g/dL (33.0-36.5); MEAN CORPUSCULAR VOLUME 84.2 FL (78-98); MEAN PLATELET VOLUME 8.4 FL (7.4-10.4); MONOCYTES # (AUTO) 0.8 X10'3 (0-0.9); MONOCYTES % (AUTO) 5.8 % (2-12); NEUTROPHILS # (AUTO) 11.9 X10'3 (1.8-7.7); NEUTROPHILS % (AUTO) 83.4 % (42-75); PLATELET COUNT 228 X10'3 (140-440); RED BLOOD COUNT 4.94 X10'6 (4.20-5.60); RED CELL DISTRIBUTION WIDTH 15.2 % (11.5-14.5); WHITE BLOOD COUNT 14.2 X10'3 (4.5-11.0)
--- NOTE | 2021-08-17 06:48 | NUR ---
Problems reprioritized. Patient report given, questions answered & plan of care reviewed with Rosa Maria BERNAL.
[2021-08-17 06:57] LABS: ALBUMIN 2.7 G/DL (3.4-5.0); ANION GAP 8 (8-16); BLOOD UREA NITROGEN 22 MG/DL (7-18); BUN/CREATININE RATIO 27.2 (6.6-38.0); CALCIUM 8.4 MG/DL (8.5-10.1); CHLORIDE 109 MMOL/L (99-107); CREATININE 0.81 MG/DL (0.40-0.90); GLUCOSE 138 MG/DL (70-104); MAGNESIUM 1.9 MG/DL (1.5-2.4); POTASSIUM 4.6 MMOL/L (3.5-5.1); SODIUM 146 MMOL/L (135-145); eGFR 76 ML/MIN
[2021-08-17] MEDS: K and/or MAG REPLACEMENT MC SCH (08:00)
[2021-08-17] MEDS: carvedilol 6.25mg tablet PO SCH (08:00)
[2021-08-17] MEDS: methylPREDNISolone sod succ/PF 40mg inj. IV SCH (09:03)
[2021-08-17] MEDS: atorvastatin 20mg tablet PO SCH (09:03)
[2021-08-17] MEDS: ESCITALOPRAM OXALATE 5 MG TABLET PO SCH (09:03)
[2021-08-17] MEDS: cefTRIAXone 1g/NS 100ml IVPB 100 ML IV SCH (09:03)
[2021-08-17] MEDS: aspirin 81mg, enteric-coated 1 TAB TABLET.DR PO SCH (09:04)
[2021-08-17] MEDS: lisinopril 20mg tablet PO SCH (09:04)
--- NOTE | 2021-08-17 09:10 | NUR ---
Initial: pt admitted w/ Afib w/ RVR, acute respiratory failure, and asthma/COPD exacerbation per EMR. Currently on Heart Healthy diet w/ mostly 100% intake of meals meeting est nutrient needs at this time. M 08/16 receiving routine colace. No nutrition intervention implemented at this time, will continue to monitor. Recs: 1. continue Regular diet as tolerated 2. Bowel care per rx 3. Weekly wts Addendum: 08/17/21 at [address] Amended: Links added.
[2021-08-17] MEDS: amLODIPine 5mg tablet PO SCH (09:13)
--- NOTE | 2021-08-17 10:45 | NUR ---
PAGER ID: [phone] MESSAGE: Desire Lhote [id number] Pt. WBC shot up to 14.2. Want any lactic or anything? Also tele reports that pt. HR keeps pausing and dropping down into the 40s. Coreg was held this AM. Rosa Maria [phone]
[2021-08-17] MEDS ORDERED: AMLO5TAB PO (10:46)
[2021-08-17] MEDS ORDERED: IPRA3AMP9 NEB (10:46)
[2021-08-17] MEDS ORDERED: CARV3.122 PO (10:46)
[2021-08-17] MEDS ORDERED: PRED10TA23 PO (10:47)
[2021-08-17] MEDS ORDERED: AMOX-419 PO (10:48)
--- NOTE | 2021-08-17 11:49 | NUR ---
SPOKE WITH HOSPITALIST IN ELEVATOR RETURNING FROM LUNCH. SHE STATED ORDER EKG FOR PT. BEFORE DC.
[2021-08-17 12:14] VITALS: BP 152/62
--- NOTE | 2021-08-17 13:25 | NUR ---
DISCHARGE NOTE: Reviewed discharge paperwork with pt. She is aware she needs to f/u with her PCP in one week. She is aware to return to the nearest ER if she has any concerns. Extensive education given on new and some old medication as well as their possible ASE. Pt. denied having any questions. She is aware of the changes made to her old prescriptions and to monitor her heart rate. Pt.'s daughter here to drive pt. to her home in [place] via private vehicle. IV DC'd, cannula intact, no s/sx bleeding noted, pressure bandage applied. Pt. gathered all of her belongings, she is ad [facility] with no DME. Pt. was escorted in a w[facility]c [facility].
== END 2021-08-17 13:25 | disposition home or self-care (01) | DRG 133 ==
LOC: ER 12:43 → ED HOLD 15:49 → PCU 3S 08-14 14:05
PROVIDERS: ADMIT Internal Medicine; ATTEND Internal Medicine
PROC: 5A2204Z Restoration of Cardiac Rhythm, Single (ICD-10-PCS; principal; 2021-08-13)
PROC: 5A09357 Assistance with Respiratory Ventilation, Less than 24 Consecutive Hours, Continuous Positive Airway Pressure (ICD-10-PCS; 2021-08-13)
PROC: 5A09357 Assistance with Respiratory Ventilation, Less than 24 Consecutive Hours, Continuous Positive Airway Pressure (ICD-10-PCS; 2021-08-14)
PROC: 5A09357 Assistance with Respiratory Ventilation, Less than 24 Consecutive Hours, Continuous Positive Airway Pressure (ICD-10-PCS; 2021-08-17)
DX: J96.01 Acute respiratory failure with hypoxia (principal); E87.1 Hypo-osmolality and hyponatremia; Z68.43 Body mass index [BMI] 50.0-59.9, adult; J45.901 Unspecified asthma with (acute) exacerbation; E66.01 Morbid (severe) obesity due to excess calories; E78.00 Pure hypercholesterolemia, unspecified; E78.5 Hyperlipidemia, unspecified; E87.6 Hypokalemia; F17.210 Nicotine dependence, cigarettes, uncomplicated; I48.91 Unspecified atrial fibrillation; J43.9 Emphysema, unspecified; F32.A Depression, unspecified; F12.90 Cannabis use, unspecified, uncomplicated; R63.0 Anorexia; G47.33 Obstructive sleep apnea (adult) (pediatric); I10 Essential (primary) hypertension; I25.2 Old myocardial infarction; Z79.82 Long term (current) use of aspirin; Z86.73 Personal history of transient ischemic attack (TIA), and cerebral infarction without residual deficits; Z98.891 History of uterine scar from previous surgery; Z56.0 Unemployment, unspecified; Z79.899 Other long term (current) drug therapy; Z71.6 Tobacco abuse counseling
CPT/HCPCS: 36415; 36600; 71045; 80048; 80053; 82803; 83735; 83880; 84132; 84443; 84484; 85018; 85025; 85379; 93005; 93306; 94640; 94660; 94760; 99291; G0378; J0282; J0696; J2920; J2930; J3475; J3490; J7030

== ENCOUNTER 2021-09-14 20:23 | Emergency (ER) | payer MEDICAID ==
[~2021-09-14] VITALS: Ht 165.1 cm; Wt 113.0 kg
[~2021-09-14 20:23] MED LIST changes: -AMLO10TA13 PO; +AMLO5TAB PO; -BUDE10.22 INH; +BUDE10.27 PO; -HYDR-3686 PO; -HYDR25TA5 PO; +IPRA3AMP9 NEB; -LACT1CAP26 PO; -PANT40TA54 PO; +PRED10TA23 PO; -magnesium sulf 1 GM/2 ML ONE
[2021-09-14 20:56] LABS: BASOPHILS % (AUTO) 0.3 % (0-1); EOSINOPHILS # (AUTO) 0.1 X10'3 (0-0.9); EOSINOPHILS % (AUTO) 1.3 % (0-6); HEMATOCRIT 43.4 % (35.0-45.0); HEMOGLOBIN 14.3 g/dl (12.0-16.0); LYMPHOCYTES # (AUTO) 1.5 X10'3 (1.1-4.8); LYMPHOCYTES % (AUTO) 17.9 % (21-51); MEAN CORPUSCULAR HEMOGLOBIN 27.4 PG (27.0-31.0); MEAN CORPUSCULAR HGB CONC 32.9 g/dL (33.0-36.5); MEAN CORPUSCULAR VOLUME 83.4 FL (78-98); MEAN PLATELET VOLUME 7.8 FL (7.4-10.4); MONOCYTES # (AUTO) 0.9 X10'3 (0-0.9); MONOCYTES % (AUTO) 10.1 % (2-12); NEUTROPHILS # (AUTO) 6.1 X10'3 (1.8-7.7); NEUTROPHILS % (AUTO) 70.4 % (42-75); PLATELET COUNT 308 X10'3 (140-440); RED CELL DISTRIBUTION WIDTH 14.8 % (11.5-14.5); WHITE BLOOD COUNT 8.6 X10'3 (4.5-11.0)
[2021-09-14 21:11] LABS: ALANINE AMINOTRANSFERASE 44 U/L (12-78); ALBUMIN 2.8 G/DL (3.4-5.0); ALBUMIN/GLOBULIN RATIO 0.7 (1.1-1.5); ALKALINE PHOSPHATASE 70 IU/L (46-116); ANION GAP 8 (8-16); ASPARTATE AMINO TRANSFERASE 24 U/L (10-37); BILIRUBIN,TOTAL 0.5 MG/DL (0.1-1.0); BLOOD UREA NITROGEN 11 MG/DL (7-18); BUN/CREATININE RATIO 11.3 (6.6-38.0); CALCIUM 8.8 MG/DL (8.5-10.1); CHLORIDE 104 MMOL/L (99-107); CREATININE 0.97 MG/DL (0.40-0.90); GLUCOSE 125 MG/DL (70-104); POTASSIUM 3.3 MMOL/L (3.5-5.1); SODIUM 140 MMOL/L (135-145); TOTAL CARBON DIOXIDE 27.7 MMOL/L (24-32); TOTAL PROTEIN 6.9 G/DL (6.4-8.2); eGFR 62 ML/MIN
[2021-09-15] MEDS ORDERED: albuterol 2.5 MG/3 ML nebule NEB ONE (04:30)
[2021-09-15 06:02] VITALS: BP 150/72
[2021-09-15] MEDS ORDERED: dexamethasone sod phosphate 10mg/ml inj IV STA (06:12)
== END 2021-09-15 06:45 | disposition home or self-care (01) ==
LOC: ER 20:24
DX: J44.1 Chronic obstructive pulmonary disease with (acute) exacerbation (principal); R05.9 Cough, unspecified; R06.02 Shortness of breath; R19.7 Diarrhea, unspecified; E78.00 Pure hypercholesterolemia, unspecified; I10 Essential (primary) hypertension; I25.2 Old myocardial infarction; F12.90 Cannabis use, unspecified, uncomplicated; Z86.73 Personal history of transient ischemic attack (TIA), and cerebral infarction without residual deficits; Z90.89 Acquired absence of other organs; Z98.890 Other specified postprocedural states; Z56.0 Unemployment, unspecified; Z79.899 Other long term (current) drug therapy
CPT/HCPCS: 36415; 71046; 80053; 83605; 83880; 84484; 85025; 87040; 93005; 94640; 96374; 99285; J1100; 94760

== ENCOUNTER 2023-03-21 10:31 | Inpatient (IN) | payer MEDICAID ==
[~2023-03-21] VITALS: Ht 152.4 cm; Wt 118.5 kg
[~2023-03-21 10:31] MED LIST changes: -PRED10TA23 PO
[2023-03-21] MEDS ORDERED: ipratropium 0.5 MG/2.5ML nebule IH ONE (12:00)
[2023-03-21] MEDS ORDERED: methylPREDNISolone sod succ 125mg/2ml vial IV ONE (12:00)
[2023-03-21] MEDS ORDERED: albuterol 2.5 MG/3 ML nebule CONTNEB PRN (12:00)
[2023-03-21 12:13] VITALS: PULSE 82; RESP 22; O2SAT 92
[2023-03-21 12:40] LABS: EOSINOPHILS # (AUTO) 0.1 X10'3 (0-0.9); EOSINOPHILS % (AUTO) 0.5 % (0-6); LYMPHOCYTES # (AUTO) 0.6 X10'3 (1.1-4.8); NEUTROPHILS # (AUTO) 8.6 X10'3 (1.8-7.7); RED CELL DISTRIBUTION WIDTH 14.3 % (11.5-14.5); WHITE BLOOD COUNT 10.3 X10'3 (4.5-11.0)
[2023-03-21] MEDS ORDERED: carvedilol 6.25mg tablet PO ONE (12:40)
[2023-03-21] MEDS ORDERED: lisinopril 10 MG tablet PO ONE (12:40)
[2023-03-21] MEDS ORDERED: amLODIPine 5mg tablet PO ONE (12:40)
[2023-03-21] MEDS ORDERED: HYDROchlorothiazide 25mg tablet PO ONE (12:40)
[2023-03-21 12:41] LABS: BASOPHILS % (AUTO) 0.3 % (0-1); HEMATOCRIT 43.1 % (35.0-45.0); HEMOGLOBIN 14.5 g/dl (12.0-16.0); LYMPHOCYTES % (AUTO) 6.2 % (21-51); MEAN CORPUSCULAR HEMOGLOBIN 29.4 PG (27.0-31.0); MEAN CORPUSCULAR HGB CONC 33.6 g/dL (33.0-36.5); MEAN CORPUSCULAR VOLUME 87.5 FL (78-98); MEAN PLATELET VOLUME 8.7 FL (7.4-10.4); MONOCYTES % (AUTO) 9.4 % (2-12); NEUTROPHILS % (AUTO) 83.6 % (42-75); PLATELET COUNT 227 X10'3 (140-440); RED BLOOD COUNT 4.93 X10'6 (4.20-5.60)
[2023-03-21 12:51] LABS: ALANINE AMINOTRANSFERASE 47 U/L (12-78); ALBUMIN 3.2 G/DL (3.4-5.0); ALBUMIN/GLOBULIN RATIO 0.8 (1.1-1.5); ALKALINE PHOSPHATASE 79 IU/L (46-116); ANION GAP 7 (8-16); ASPARTATE AMINO TRANSFERASE 31 U/L (10-37); BILIRUBIN,TOTAL 0.6 MG/DL (0.1-1.0); BLOOD UREA NITROGEN 10 MG/DL (7-18); BUN/CREATININE RATIO 12.7 (10.0-20.0); CALCIUM 8.8 MG/DL (8.5-10.1); CHLORIDE 98 MMOL/L (99-107); CREATININE 0.79 MG/DL (0.40-0.90); GLUCOSE 120 MG/DL (70-104); POTASSIUM 3.5 MMOL/L (3.5-5.1); SODIUM 136 MMOL/L (135-145); TOTAL CARBON DIOXIDE 31.4 MMOL/L (24-32); TOTAL PROTEIN 7.2 G/DL (6.4-8.2); eCRCL 65 ML/MIN; eGFR 77 ML/MIN
[2023-03-21 12:51] LABS: BILIRUBIN,URINE NEGATIVE (Neg); CLARITY,URINE CLEAR (Clear); COLOR,URINE YELLOW (Yellow); GLUCOSE, URINE NEGATIVE (Neg); KETONES,URINE NEGATIVE (Neg); LEUKOCYTE ESTERASE ,URINE NEGATIVE (Neg); NITRITES, URINE NEGATIVE (Neg); OCCULT BLOOD,URINE NEGATIVE (Neg); PH,URINE 7.5 (4.8-8.0); PROTEIN,URINE 100 mg/dl (Neg)
[2023-03-21 12:56] LABS: UA COLLECTION TYPE STRAIGHT CATH
[2023-03-21 12:57] LABS: BACTERIA,URINE NONE SEEN /HPF (Neg); RBC,URINE 0-2 /HPF (0-2); SQUAMOUS EPITHELIAL CELL,UR FEW /LPF (FEW)
[2023-03-21 12:58] LABS: WBC,URINE 0-4 /HPF (0-4)
[2023-03-21 13:18] VITALS: PULSE 92; RESP 22; O2SAT 92
[2023-03-21] MEDS ORDERED: nitroGLYCERIN 0.4mg/hour patch TD ONE (13:20)
[2023-03-21] MEDS ORDERED: aspirin 81mg tab.chew PO ONE (13:20)
[2023-03-21] MEDS ORDERED: levoFLOXACIN-Levaquin 750MG/D5 150 ML IV ONE (13:25)
[2023-03-21 15:40] LABS: URINE HCG NEGATIVE (NEG)
[2023-03-21] MEDS ORDERED: magnesium 4gm in 100ml NS 100 ML IV PRN (16:05)
[2023-03-21] MEDS ORDERED: potassium Cl 40MEQ/1/2NS 520ml 520 ML IV PRN (16:05)
[2023-03-21] MEDS ORDERED: potassium Cl 20 mEq SR tablet PO PRN ×2 (16:05)
[2023-03-21] MEDS ORDERED: magnesium Cl slow-release 64mg tablet PO PRN (16:05)
[2023-03-21] MEDS ORDERED: ipratropium/albuterol 3ml nebule NEB PRN (16:05)
[2023-03-21] MEDS ORDERED: ondansetron/PF 4mg/2ml inj IV PRN (16:05)
[2023-03-21] MEDS ORDERED: mag hydrox/Alum hydrox/simeth 30ml oral suspension PO PRN (16:05)
[2023-03-21] MEDS ORDERED: docusate sod 100mg capsule PO PRN (16:05)
[2023-03-21] MEDS ORDERED: magnesium hydroxide 30ml (MOM) UD suspension PO PRN (16:05)
[2023-03-21] MEDS ORDERED: magnesium 2GM in 50ml NS 50 ML IV PRN (16:05)
[2023-03-21 17:20] VITALS: PULSE 83; RESP 24; O2SAT 90
[2023-03-21 17:29] VITALS: PULSE 89; RESP 22
--- NOTE | 2023-03-21 17:35 | NUR ---
REPOSITIONED PT. PERFORMED BED BATH.
--- NOTE | 2023-03-21 17:35 | NUR ---
PT TO MRI
[2023-03-21] MEDS ORDERED: PERFLUTREN PROTEIN-A MICROSPHR (Optison) 0.22 MG/ML 3ML VIAL IV ONE (19:05)
[2023-03-21] MEDS: K and/or MAG REPLACEMENT MC SCH (19:21)
[2023-03-21] MEDS: carVEDilol 3.125mg tablet PO SCH (20:00)
[2023-03-21] MEDS ORDERED: non-formulary drug (Budesonide/Formoterol Fumarate (Budesonide-Formoterol 80-4.5) 2 PUFFS) PO SCH (20:00)
[2023-03-21] MEDS: NYSTATIN CREAM - 30GM TUBE TP SCH (20:00)
[2023-03-21] MEDS: lisinopril 20mg tablet PO SCH (20:00)
[2023-03-21] MEDS: ipratropium/albuterol 3ml nebule NEB SCH (20:19)
[2023-03-21] MEDS: budesonide 0.5mg/2ml UD nebule IH SCH (20:19)
[2023-03-21 20:21] VITALS: PULSE 78; RESP 20; O2SAT 93
[2023-03-21] MEDS: albuterol 2.5 MG/3 ML nebule NEB SCH (20:21)
[2023-03-21 20:28] VITALS: PULSE 74; RESP 20
--- NOTE | 2023-03-21 20:44 | NUR ---
NOTIFIED OF VS OUT OF PARAMETERS FOR HS COREG AND LISINOPRIL, BP 91/58 P78. STATED OK TO HOLD BOTH COREG AND LISINOPRIL W/ NO NEW ORDERS.
[2023-03-21] MEDS ORDERED: iohexol 300mg/ml 100ml inj. ONE (21:48)
[2023-03-22] VITALS (15 sets, daily range): BP systolic 135–145; BP diastolic 58–67; PULSE 61–100; RESP 15–24; TEMP 97.3–98.6; O2SAT 20–100
[2023-03-22] MEDS: ipratropium/albuterol 3ml nebule NEB SCH ×2 (02:41→14:20)
[2023-03-22] MEDS: albuterol 2.5 MG/3 ML nebule NEB SCH ×3 (02:41→22:07)
[2023-03-22] MEDS: acetaminophen 325mg tablet PO PRN ×2 (04:32→21:45)
[2023-03-22 07:05] LABS: BASOPHILS % (AUTO) 0.1 % (0-1); EOSINOPHILS % (AUTO) 0 % (0-6); HEMATOCRIT 42.8 % (35.0-45.0); LYMPHOCYTES % (AUTO) 7.4 % (21-51); MEAN CORPUSCULAR HEMOGLOBIN 28.8 PG (27.0-31.0); MEAN CORPUSCULAR HGB CONC 32.6 g/dL (33.0-36.5); MEAN CORPUSCULAR VOLUME 88.3 FL (78-98); MEAN PLATELET VOLUME 8.8 FL (7.4-10.4); MONOCYTES # (AUTO) 1.2 X10'3 (0-0.9); MONOCYTES % (AUTO) 8.5 % (2-12); NEUTROPHILS # (AUTO) 11.5 X10'3 (1.8-7.7); PLATELET COUNT 239 X10'3 (140-440); RED BLOOD COUNT 4.85 X10'6 (4.20-5.60); RED CELL DISTRIBUTION WIDTH 14.6 % (11.5-14.5); WHITE BLOOD COUNT 13.7 X10'3 (4.5-11.0)
[2023-03-22 07:15] LABS: APTT 22 SECONDS (22-32); PROTHROMBIN TIME 10.3 SECONDS (9.0-12.0)
--- NOTE | 2023-03-22 07:33 | NUR ---
REMOVED PT NITRO PATCH D/T BRADYCARDIA.
[2023-03-22 07:35] LABS: ALANINE AMINOTRANSFERASE 38 U/L (12-78); ALBUMIN 2.9 G/DL (3.4-5.0); ALBUMIN/GLOBULIN RATIO 0.7 (1.1-1.5); ALKALINE PHOSPHATASE 70 IU/L (46-116); ANION GAP 7 (8-16); ASPARTATE AMINO TRANSFERASE 27 U/L (10-37); BILIRUBIN,TOTAL 0.3 MG/DL (0.1-1.0); BLOOD UREA NITROGEN 19 MG/DL (7-18); BUN/CREATININE RATIO 21.1 (10.0-20.0); CALCIUM 8.6 MG/DL (8.5-10.1); CHLORIDE 101 MMOL/L (99-107); GLUCOSE 144 MG/DL (70-104); POTASSIUM 3.9 MMOL/L (3.5-5.1); SODIUM 136 MMOL/L (135-145); THYROID STIMULATING HORMONE 0.95 ulU/ml (0.34-4.50); TOTAL PROTEIN 6.9 G/DL (6.4-8.2); eCRCL 57 ML/MIN; eGFR 67 ML/MIN
[2023-03-22] MEDS: K and/or MAG REPLACEMENT MC SCH ×2 (08:00→20:00)
[2023-03-22] MEDS ORDERED: azithromycin/NS 500mg/250ml 250 ML IV SCH (08:00)
[2023-03-22] MEDS: NYSTATIN CREAM - 30GM TUBE TP SCH ×2 (08:00→20:00)
[2023-03-22] MEDS: budesonide 0.5mg/2ml UD nebule IH SCH ×2 (08:59→22:07)
--- NOTE | 2023-03-22 09:30 | NUR ---
Received notification from [email or web address], via GABE Bliss that pt had h Addendum: 03/22/23 at 1044 by Gudelia Arias RN Received notification from [email or web address], via Ruthy BERNAL that pt had a 5.[address] De Oliveira was paged by Ruthy. Pt was alert and oriented and in no apparent distress. VS: 9:58 BP 82/58 right arm manual, HR=70, O2 93% (2.5 L n/c),EKG ordered by Dr. De Oliveira and reading reviewed by Dr. De Oliveira. 1L bolus ordered by Dr. De Oliveira. Lactic acid, blood cultures and troponin ordered by Dr. De Oliveira and drawn by collaborating supervising physician. Pt's blood pressure resolved spontaneously before start of bolus. 1010:138/53, right arm dynamap, HR =66, O2 92% on 2.[address] De Oliveira declined to order cardiology consult. Will continue to monitor.
--- NOTE | 2023-03-22 09:35 | NUR ---
PAGER ID: [phone] MESSAGE: [phone], Zara Fierro. Pt just had a 5.7 sec pause. She dipped down to the 40s. Also she has sleep apnea and uses a cpap.bipap at home. Can we get an order for one please. Ruthy SHIRLEY
[2023-03-22] MEDS ORDERED: normal saline 1000ml 1,000 ML IVB ONE (10:05)
--- NOTE | 2023-03-22 10:27 | NUR ---
9168 I have received telephone report from NOEMI Meza RN. Inquired about EKG result and was told inverted T waves. Inquired if cardiology was consulted, was told cardiology has not been consulted. Ready to assume patient care upon arrival to the PCU.
--- NOTE | 2023-03-22 11:40 | NUR ---
1010: Rec'd order for respiratory therapy consult and bipap from Dr. De Oliveira. RT arrived on PCU and will set up bipap.
[2023-03-22] MEDS: CefTRIAXone/D5W-Rocephin 1gm 50 ML IV SCH (12:02)
[2023-03-22] MEDS: carVEDilol 3.125mg tablet PO SCH ×2 (12:03→21:45)
[2023-03-22] MEDS: amLODIPine 5mg tablet PO SCH (12:03)
[2023-03-22] MEDS: methylPREDNISolone sod succ 125mg/2ml vial IV SCH ×2 (12:04→21:44)
[2023-03-22] MEDS: ESCITALOPRAM 10 mg tablet 10 MG TABLET PO SCH (12:04)
[2023-03-22] MEDS: lisinopril 20mg tablet PO SCH ×2 (12:04→21:46)
[2023-03-22] MEDS: atorvastatin 20mg tablet PO SCH (12:04)
[2023-03-22] MEDS ORDERED: acetaminophen 325mg tablet PO PRN (13:15)
[2023-03-22] MEDS: azithromycin/NS 500mg/250ml 250 ML IV SCH (17:03)
--- NOTE | 2023-03-22 18:25 | NUR ---
Patient report given to GABE Gallardo. Questions answered & plan of care reviewed.
[2023-03-23] VITALS (19 sets, daily range): BP systolic 106–155; BP diastolic 45–72; PULSE 55–70; RESP 16–22; TEMP 97.6–98.5; O2SAT 90–98
[2023-03-23] MEDS: albuterol 2.5 MG/3 ML nebule NEB SCH ×3 (02:38→15:00)
[2023-03-23] MEDS: ipratropium/albuterol 3ml nebule NEB SCH ×4 (02:40→19:42)
--- NOTE | 2023-03-23 06:24 | NUR ---
Patient in room PCU 3012. I have received report from Sami BERNAL and had the opportunity to ask questions and assume patient care. Patient is sleeping in bed with cpap on in no apparent distress.
[2023-03-23] MEDS: K and/or MAG REPLACEMENT MC SCH ×2 (08:00→20:15)
[2023-03-23] MEDS: budesonide 0.5mg/2ml UD nebule IH SCH ×2 (08:10→19:42)
[2023-03-23 08:14] LABS: BASOPHILS % (AUTO) 0.1 % (0-1); EOSINOPHILS % (AUTO) 0 % (0-6); LYMPHOCYTES # (AUTO) 1.4 X10'3 (1.1-4.8); LYMPHOCYTES % (AUTO) 7.1 % (21-51); MEAN CORPUSCULAR HEMOGLOBIN 28.4 PG (27.0-31.0); MEAN CORPUSCULAR HGB CONC 31.8 g/dL (33.0-36.5); MEAN CORPUSCULAR VOLUME 89.4 FL (78-98); MEAN PLATELET VOLUME 8.8 FL (7.4-10.4); MONOCYTES # (AUTO) 0.9 X10'3 (0-0.9); MONOCYTES % (AUTO) 4.4 % (2-12); NEUTROPHILS # (AUTO) 17.5 X10'3 (1.8-7.7); NEUTROPHILS % (AUTO) 88.4 % (42-75); PLATELET COUNT 263 X10'3 (140-440); RED BLOOD COUNT 4.93 X10'6 (4.20-5.60); WHITE BLOOD COUNT 19.7 X10'3 (4.5-11.0)
[2023-03-23] MEDS: CefTRIAXone/D5W-Rocephin 1gm 50 ML IV SCH (08:23)
[2023-03-23] MEDS: methylPREDNISolone sod succ 125mg/2ml vial IV SCH ×2 (08:24→19:50)
[2023-03-23] MEDS: ESCITALOPRAM 10 mg tablet 10 MG TABLET PO SCH (08:25)
[2023-03-23] MEDS: amLODIPine 5mg tablet PO SCH (08:26)
[2023-03-23] MEDS: carVEDilol 3.125mg tablet PO SCH ×2 (08:26→20:14)
[2023-03-23] MEDS: atorvastatin 20mg tablet PO SCH (08:26)
[2023-03-23] MEDS: lisinopril 20mg tablet PO SCH ×2 (08:26→20:13)
[2023-03-23 08:32] LABS: ALANINE AMINOTRANSFERASE 46 U/L (12-78); ALBUMIN 2.8 G/DL (3.4-5.0); ALBUMIN/GLOBULIN RATIO 0.7 (1.1-1.5); ALKALINE PHOSPHATASE 63 IU/L (46-116); ANION GAP 3 (8-16); ASPARTATE AMINO TRANSFERASE 25 U/L (10-37); BILIRUBIN,TOTAL 0.2 MG/DL (0.1-1.0); BLOOD UREA NITROGEN 22 MG/DL (7-18); CALCIUM 8.7 MG/DL (8.5-10.1); CHLORIDE 105 MMOL/L (99-107); CREATININE 0.88 MG/DL (0.40-0.90); GLUCOSE 131 MG/DL (70-104); POTASSIUM 4.1 MMOL/L (3.5-5.1); SODIUM 140 MMOL/L (135-145); TOTAL CARBON DIOXIDE 32.1 MMOL/L (24-32); TOTAL PROTEIN 6.7 G/DL (6.4-8.2); eCRCL 56 ML/MIN; eGFR 68 ML/MIN
[2023-03-23 09:01] LABS: ESTRADIOL 16.4 pg/mL (.); FSH, SERUM 3.2 mIU/mL (.); LUTEINIZING HORMONE 1.4 mIU/mL (.); PROGESTERONE 0.1 ng/mL (.)
[2023-03-23] MEDS ORDERED: HYDR25TA4 PO (09:34)
--- NOTE | 2023-03-23 10:00 | NUR ---
NURSES NOTES PATIENT WANTS SCD OFF DURING THE DAY
--- NOTE | 2023-03-23 11:12 | NUR ---
NURSES NOTES PATIENT GIVEN IS AND FLUTTER VALVE AND EDUCATED HOW TO USE. PATIENT DEMONSTRATED PROPER USE.
--- NOTE | 2023-03-23 14:14 | NUR ---
i AGREE WITH ORIENTEE CHARTING
--- NOTE | 2023-03-23 14:28 | NUR ---
Patient in room PCU 3012. I have received report from Chayo BERNAL and had the opportunity to ask questions and assume patient care.
--- NOTE | 2023-03-23 14:32 | NUR ---
Problems reprioritized. Patient report given, questions answered & plan of care reviewed with AN BRUNNER. PATIENT IS RESTING IN BED IN NO ACUTE DISTRESS.
[2023-03-23] MEDS: azithromycin/NS 500mg/250ml 250 ML IV SCH (17:32)
--- NOTE | 2023-03-23 18:15 | NUR ---
Problems reprioritized. Patient report given, questions answered & plan of care reviewed with Aditya BRUNNER.
[2023-03-23] MEDS ORDERED: zolpidem 5mg tablet PO PRN (20:10)
[2023-03-23] MEDS: nystatin 15 GM ointment TP SCH (20:41)
[2023-03-24] VITALS (13 sets, daily range): BP systolic 150–160; BP diastolic 65–76; PULSE 52–84; RESP 17–22; TEMP 97.4–98.3; O2SAT 91–99
[2023-03-24] MEDS: ipratropium/albuterol 3ml nebule NEB SCH ×3 (02:27→14:07)
--- NOTE | 2023-03-24 06:25 | NUR ---
Patient in room PCU 3012. I have received report from Sid guerra and had the opportunity to ask questions and assume patient care.pT SLEEPING bIPAP IN PLACE. 40% FIO2 . Addendum: 03/24/23 at 0626 by Annie Reeves RN Amended: Links added.
[2023-03-24 07:06] LABS: BASOPHILS % (AUTO) 0.1 % (0-1); EOSINOPHILS % (AUTO) 0 % (0-6); HEMATOCRIT 41.9 % (35.0-45.0); HEMOGLOBIN 13.4 g/dl (12.0-16.0); LYMPHOCYTES # (AUTO) 1.6 X10'3 (1.1-4.8); LYMPHOCYTES % (AUTO) 8.5 % (21-51); MEAN CORPUSCULAR HEMOGLOBIN 28.6 PG (27.0-31.0); MEAN CORPUSCULAR VOLUME 89.2 FL (78-98); MEAN PLATELET VOLUME 8.8 FL (7.4-10.4); MONOCYTES # (AUTO) 0.9 X10'3 (0-0.9); MONOCYTES % (AUTO) 4.6 % (2-12); NEUTROPHILS # (AUTO) 16.4 X10'3 (1.8-7.7); NEUTROPHILS % (AUTO) 86.8 % (42-75); PLATELET COUNT 260 X10'3 (140-440); RED CELL DISTRIBUTION WIDTH 14.7 % (11.5-14.5); WHITE BLOOD COUNT 18.9 X10'3 (4.5-11.0)
[2023-03-24 07:29] LABS: ALANINE AMINOTRANSFERASE 41 U/L (12-78); ALBUMIN 2.6 G/DL (3.4-5.0); ALBUMIN/GLOBULIN RATIO 0.7 (1.1-1.5); ALKALINE PHOSPHATASE 59 IU/L (46-116); ANION GAP 4 (8-16); ASPARTATE AMINO TRANSFERASE 20 U/L (10-37); BILIRUBIN,TOTAL 0.2 MG/DL (0.1-1.0); BLOOD UREA NITROGEN 24 MG/DL (7-18); BUN/CREATININE RATIO 28.6 (10.0-20.0); CALCIUM 8.7 MG/DL (8.5-10.1); CHLORIDE 105 MMOL/L (99-107); CREATININE 0.84 MG/DL (0.40-0.90); GLUCOSE 122 MG/DL (70-104); POTASSIUM 4.4 MMOL/L (3.5-5.1); SODIUM 141 MMOL/L (135-145); TOTAL CARBON DIOXIDE 32.5 MMOL/L (24-32); TOTAL PROTEIN 6.1 G/DL (6.4-8.2); eCRCL 58 ML/MIN; eGFR 72 ML/MIN
[2023-03-24] MEDS: budesonide 0.5mg/2ml UD nebule IH SCH (07:40)
[2023-03-24] MEDS: methylPREDNISolone sod succ 125mg/2ml vial IV SCH (07:48)
[2023-03-24] MEDS: CefTRIAXone/D5W-Rocephin 1gm 50 ML IV SCH (07:48)
[2023-03-24] MEDS: K and/or MAG REPLACEMENT MC SCH (08:00)
[2023-03-24] MEDS: atorvastatin 20mg tablet PO SCH (08:33)
[2023-03-24] MEDS: amLODIPine 5mg tablet PO SCH (08:34)
[2023-03-24] MEDS: ESCITALOPRAM 10 mg tablet 10 MG TABLET PO SCH (08:34)
[2023-03-24] MEDS: carVEDilol 3.125mg tablet PO SCH (08:35)
[2023-03-24] MEDS: lisinopril 20mg tablet PO SCH (08:35)
[2023-03-24] MEDS: nystatin 15 GM ointment TP SCH (08:36)
[2023-03-24 11:26] LABS: PRO BRAIN NATRIURETIC PEPTIDE 252 PG/ML (0-125)
[2023-03-24] MEDS ORDERED: FURO-150 PO (13:02)
[2023-03-24] MEDS ORDERED: PRED10TA23 PO (13:02)
--- NOTE | 2023-03-24 15:01 | NUR ---
All written and verbal orders for D/C given , all questions answered. Pt home with family in time for Thanksgiving family gathering. :) Addendum: 03/24/23 at 1502 by Annie Reeves RN Amended: Links added.
[2023-03-25] MEDS ORDERED: aspirin 81mg, enteric-coated 1 TAB TABLET.DR PO SCH (08:00)
== END 2023-03-24 15:05 | disposition home or self-care (01) | DRG 133 ==
LOC: ER 10:31 → ED HOLD 16:16 → PCU 3S 03-22 07:43
PROVIDERS: ADMIT Family Medicine; ATTEND Family Medicine
PROC: 5A09357 Assistance with Respiratory Ventilation, Less than 24 Consecutive Hours, Continuous Positive Airway Pressure (ICD-10-PCS; principal; 2023-03-22)
PROC: 5A09357 Assistance with Respiratory Ventilation, Less than 24 Consecutive Hours, Continuous Positive Airway Pressure (ICD-10-PCS; 2023-03-24)
DX: J96.01 Acute respiratory failure with hypoxia (principal); I21.A1 Myocardial infarction type 2; I50.43 Acute on chronic combined systolic (congestive) and diastolic (congestive) heart failure; J44.1 Chronic obstructive pulmonary disease with (acute) exacerbation; Z68.43 Body mass index [BMI] 50.0-59.9, adult; I27.81 Cor pulmonale (chronic); I11.0 Hypertensive heart disease with heart failure; E78.00 Pure hypercholesterolemia, unspecified; G47.33 Obstructive sleep apnea (adult) (pediatric); N92.0 Excessive and frequent menstruation with regular cycle; F17.210 Nicotine dependence, cigarettes, uncomplicated; Z20.822 Contact with and (suspected) exposure to COVID-19; E66.01 Morbid (severe) obesity due to excess calories; I25.2 Old myocardial infarction; Z86.73 Personal history of transient ischemic attack (TIA), and cerebral infarction without residual deficits; Z98.891 History of uterine scar from previous surgery; Z87.442 Personal history of urinary calculi; Z80.0 Family history of malignant neoplasm of digestive organs; Z79.899 Other long term (current) drug therapy; Z79.82 Long term (current) use of aspirin
CPT/HCPCS: 36415; 71045; 71046; 71260; 73721; 76830; 76856; 80053; 81001; 81025; 82670; 83001; 83002; 83036; 83605; 83880; 84144; 84443; 84484; 85025; 85610; 85730; 87040; 87070; 87081; 87502; 87503; 87811; 93005; 93306; 94640; 94660; 94760; 99285; A7015; G0378; J0456; J0696; J1956; J2930; J3490; J7030; Q9967

== ENCOUNTER 2024-10-02 10:25 | Outpatient (CLI) | payer MEDICAID ==
[~2024-10-02 10:25] MED LIST changes: +FURO-150 PO
--- NOTE | 2024-10-02 13:28 | RADIOLOGY REPORT ---
INDICATION: OTHER SPECIFIED NONINFLAMMATORY DISORDERS OF UTERUS TECHNIQUE: Multiple real-time grayscale transabdominal and TVsonographic images along with color and duplex Doppler of the uterus and ovaries were obtained. COMPARISON: US ULTRASOUND PELVIS W/ORWO DPLX on DOS: 03/21/23 FINDINGS: Uterus not visualized. The right ovary measures 5 x 4 x 6 cm. The left ovary measures 3 x 3 x 3 cm. Subsequent color and duplex Doppler interrogation of the ovaries demonstrated symmetric vascular flow to both ovaries, though this does not exclude the possibility of torsion due to the dual blood suppl y. IMPRESSION: 1. Grossly unremarkable pelvic ultrasound.
== END 2024-10-02 23:59 | disposition home or self-care (01) ==
LOC: RAD 10:25
PROVIDERS: ATTEND Nurse Practitioner Family
DX: N85.8 Other specified noninflammatory disorders of uterus (principal)
CPT/HCPCS: 76857; 93976

== ENCOUNTER 2025-01-29 21:15 | Inpatient (IN) | payer MEDICAID ==
[~2025-01-29] VITALS: Ht 149.9 cm; Wt 120.2 kg
--- NOTE | 2025-01-29 21:45 | Physician Documentation ---
History of Present Illness ~ Chief Complaint: Stroke Alert Stated Complaint: HEAD PAIN Time Seen by MD: 21:43 Primary Medical Doctor: [facility] Patient presents to the emergency room with left-sided vision changes that began yesterday. Symptoms are waxing and waning. Patient also endorses significant headache. No fevers or traumas. Patient states she is having trouble reading. She is able to see the words but unable to comprehend them. Medication Reconciliation Allergies: Coded Allergies: No Known Allergies (Unverified , 01/27/17) Scheduled Albuterol Sulfate (Ventolin Hfa), 2 PUFFS INH Q4HPRN, (Reported) Amlodipine Besylate (Amlodipine Besylate), 1 TABLET PO DAILY Aspirin (Aspirin EC), 1 TAB PO DAILY, (Reported) Atorvastatin Calcium (Atorvastatin Calcium), 1 TAB PO DAILY, (Reported) Budesonide/Formoterol Fumarate (Budesonide-Formoterol 80-4.5), 2 PUFFS PO BID, (Reported) Carvedilol (Carvedilol), 1 TAB PO Q12H Ergocalciferol (Vitamin D2) (Vitamin D2), 1 CAP PO Q7D, (Reported) Escitalopram Oxalate (Lexapro), 1 TAB PO DAILY, (Reported) Furosemide (Lasix), 40 MG PO BID Ipratropium/Albuterol Sulfate (IPRAT-ALBUT 0.5-3(2.5) MG/3 ML nebule), 3 ML NEB Q4HRT Lisinopril (Lisinopril), 1 TAB PO BID, (Reported) Semaglutide (Ozempic), 1 MG SUBCUT Q7D, (Reported) Past Medical History Past Medical History: CVA/TIA/Stroke, Seizures, *CARDIOVASCULAR*, High Cholesterol, Hypertension, Myocardial Infarction, Asthma, Kidney Stones, UTI Past Surgical History: , tonsillectomy, other Patient History: FH: liver cancer Alcohol Use: None Drug Use: marijuana Lives with: S/O Lives In: Home Occupation: unemployed Physical Exam Vital Signs: Temperature: 97.7, Heart Rate: 69, Respiratory Rate: 16, BP: 168/98, Pulse Oximetry: 97, Weight: 120.200 Oxygen Flow Rate: 0 Progress Results/Orders Results/Orders Orders - DEVON HURD MD Monitor (01/29/25 21:43) 2 Large Bore Ivs (01/29/25 21:43) Chest,Single View (01/29/25 22:38) Accucheck (01/29/25 21:43) Ct Stroke Alert (01/29/25 21:43) Ruffin Prov.Neuro Consult (01/29/25 21:43) Cta Neck/Head (01/29/25 22:13) Page Hospitalist (01/29/25 23:26) Fill Out Med Reconciliation (01/29/25 23:26) Completed Orders - DEVON HURD MD Cbc/Diff (01/29/25 21:43) Electrocardiogram (01/29/25 21:43) Chest,Single View (01/29/25 22:38) Ct Stroke Alert (01/29/25 21:43) BMP (01/29/25 21:43) PTT (01/29/25 21:43) Pt Inr (01/29/25 21:43) ESR (01/29/25 21:44) Cta Neck/Head (01/29/25 22:13) Vital Signs 01/29/25 01/29/25 01/29/25 01/29/25 21:33 21:56 22:09 22:34 Temp 97.7 97.7 97.7 Pulse 69 99 97 112 Resp 16 16 14 16 B/P (MAP) 168/98 173/101 (125) 173/101 170/102 (124) Pulse Ox 97 95 95 96 O2 Flow Rate 0 0 0 01/29/25 01/29/25 01/29/25 22:34 22:46 23:15 Pulse 112 98 Resp 16 19 21 B/P (MAP) 170/102 155/93 Pulse Ox 96 96 Laboratory Tests Test 01/29/25 21:41 01/29/25 21:56 Glucometer 116 H White Blood Count 12.0 H Red Blood Count 5.22 Hemoglobin 15.2 Hematocrit 46.1 H Mean Corpuscular Volume 88.3 Mean Corpuscular Hemoglobin 29.1 Mean Corpuscular Hemoglobin Concent 32.9 L Red Cell Distribution Width 14.8 H Platelet Count 264 Mean Platelet Volume 8.8 Neutrophils (%) (Auto) 58.2 Lymphocytes (%) (Auto) 29.8 Monocytes (%) (Auto) 9.7 Eosinophils (%) (Auto) 1.8 Basophils (%) (Auto) 0.5 Neutrophils # (Auto) 7.0 Lymphocytes # (Auto) 3.6 Monocytes # (Auto) 1.2 H Eosinophils # (Auto) 0.2 Basophils # (Auto) 0.1 CBC Comment Erythrocyte Sedimentation Rate 7 Prothrombin Time 10.6 INR International Normalized Ratio 1.0 Activated Partial Thromboplast Time 26 Coagulation Comments Sodium Level 143 Potassium Level 3.6 Chloride Level 105 Carbon Dioxide Level 30.5 Anion Gap 8 Blood Urea Nitrogen 16 Creatinine 0.96 H Estimated GFR/1.73 m2 61 BUN/Creatinine Ratio 16.7 Glucose Level 106 H Calcium Level 9.1 Albumin 3.6 Chemistry Comments Medical Decision Making Findings Patient presents to the emergency room with a vision changes. Differentials include but are not limited to stroke, migraine, seizure, brain tumor if therefore emergent labs and imaging indicated. CT scan shows stroke. CTA shows no large vessel occlusion. She is outside the window of TNK. We will admit for further investigation. Tele neurology consulted. Departure Admitted to Inpatient Unit: yes, to hospitalist Impression: Primary Impression: Stroke Referrals: NO PRIMARY CARE PROVIDER (PCP) Critical Care Note Total Time (mins): 40 Critical Care Note The very real possibility of a deterioration of this patient's condition required the highest level of my preparedness for sudden, emergent intervention. I provided critical care services, which included medication orders, frequent reevaluations of the patient's condition and response to treatment, ordering and reviewing test results, and discussing the case with various consultants. Excludes time spent performing separately billable procedures. The critical care time associated with the care of the patient was 40 minutes not counting procedures Signature Scribe Signature: No scribe Attestation: The note accurately reflects work and decisions made by me.Devon Hurd MD 01/30/25 00:51 DEVON HURD MD Jan 29, 2025 21:45
--- NOTE | 2025-01-29 21:57 | ELECTROCARDIOGRAPH REPORT ---
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 Ethan Kenny Measurements Intervals [place] Rate: 100 P: 87 MT: 138 QRS: 59 QRSD: 97 T: 95 QT: 370 QTc: 478 Interpretive Statements A-V dual-paced complexes w/ some inhibition No further analysis attempted due to paced rhythm Electronically Signed On 01-31-2025 21:42:[address] Ethan Kenny Please click the below link to view image of tracing.
--- NOTE | 2025-01-29 22:10 | CONSULTATION REPORT ---
History of Present Illness Providers to CC ~ Refering MD: SHAHNAZ Allergies: Coded Allergies: No Known Allergies (Unverified , 01/27/17) Home Medications Home Medications Active Lasix (Furosemide) 20 Mg Tablet 40 Mg PO BID 30 Days IPRAT-ALBUT 0.5-3(2.5) MG/3 ML nebule (Ipratropium/Albuterol Sulfate) 3 Ml Ampul.neb 3 Ml NEB Q4HRT 10 Days Carvedilol 3.125 Mg Tablet 1 Tab PO Q12H 30 Days Amlodipine Besylate 5 Mg Tablet 1 Tablet PO DAILY Reported Budesonide-Formoterol 80-4.5 (Budesonide/Formoterol Fumarate) 10.2 Gm Hfa.aer.ad 2 Puffs PO BID Ventolin Hfa (Albuterol Sulfate) 18 Gm Hfa.aer.ad 2 Puffs INH Q4HPRN Atorvastatin Calcium 20 Mg Tablet 1 Tab PO DAILY 30 Days Lisinopril 20 Mg Tablet 1 Tab PO BID 30 Days Aspirin EC (Aspirin) 81 Mg Tablet.dr 1 Tab PO DAILY Lexapro (Escitalopram Oxalate) 10 Mg Tablet 1 Tab PO DAILY Past Family History Family History: FH: liver cancer Physical Exam Last Vital Signs Recorded: Temperature: 97.7, Heart Rate: 99, Respiratory Rate: 16, BP: 173/101, Pulse Oximetry: 95, Weight: 120.200 Assessment/Plan Additional Plan [facility] Neuro Note # Demographics Consult Type: Acute Stroke Level 2 (4.5-24 hrs) Patient Location: Emergency Room First Name: KRISTIN Last Name: JUDE Date of : 1975 Age: 50 Gender: Female Facility: [facility] Time of Initial Page (): 01/29/2025 21:51 First Contact with Site ( Time): 01/29/2025 21:51 # HPI History: 50 year old female with PMH of anxiety that I was requested to evaluate for acute stroke. The patient started having vision changes that started yesterday with a type of headache. She had temporary complete loss of vision on the left, but has problems with understanding what she is reading. # Scores Time of exam and NIHSS (): 01/29/2025 22:02 Level of Consciousness 1a: [0] = Alert; keenly responsive LOC Questions 1b: [0] = Answers both questions correctly LOC Commands 1c: [0] = Performs both tasks correctly Best Gaze 2: [0] = Normal Visual 3: [0] = No visual loss Facial Palsy 4: [0] = Normal symmetrical movements Motor Arm Left 5a: [0] = No drift Motor Arm Right 5b: [0] = No drift Motor Leg Left 6a: [0] = No drift Motor Leg Right 6b: [0] = No drift Limb Ataxia 7: [0] = Absent Sensory 8: [0] = Normal Best Language 9: [0] = No aphasia Dysarthria 10: [0] = Normal Extinction and Inattention 11: [0] = No abnormality NIHSS Total: 0 # ROS Neurologic: - see HPI # Data Time Head CT personally read by me (Hopkins Time): 01/29/2025 22:[address]: hypodensity in left MATE CHIEF territory # Assessment Impression: - Ischemic Stroke (Subacute) # Plan Thrombolytic/Intervention: NOT IV Thrombolysis or IA Intervention candidate Thrombolytic Exclusion: > 4.5 hours Intraarterial Exclusion: pending CTA Target Blood Pressure: - SBP < 180 - DBP < 105 Labs: - CBC - comprehensive metabolic panel - ESR - hemoglobin A1c - lipid panel Imaging: (urgency: STAT): - CT Angiogram Head - CT Angiogram Neck Imaging: (urgency: routine): - MRI Brain without contrast Diagnostic Test: echocardiogram Medication: - aspirin 81 mg daily - clopidogrel (Plavix) 75 mg daily Other: - If patient has any neurological deterioration please call me back immediately Additional Recommendations: RECS: == CT consistent with left MATE CHIEF stroke == get CTA of head and neck == admit for stroke workup -- MRI Brain without contrast, echocardiogram == load plavix and aspirin and continue on NURIS unless indication is found for anticoagulation == lipid panel and start statin Disposition: admit # Logistics Attestation of consult completion: The patient is located at: [facility]. Facility staff participated in the visit. I performed this t elemedicine visit from my offsite office utilizing interactive 2 way audio and visual telecommunication technology at the request of the onsite emergency room provider. Consent: Verbal consent was obtained from the patient and/or family for this encounter. Total time spent in telemedicine encounter: I spent 20 minutes reviewing clinical data and/or imaging, obtaining history, examining the patient, communicating with the onsite care team, and in preparation of this report. Critical Care time: 15 minutes of this encounter were critical care time. Due to a high probability of clinically significant, life-threatening neurologic dete rioration, the patient required my highest level of preparedness to intervene emergently. I spent this critical care time managing the patient in conjunction with on-site providers who requested my consultation. In addition to the above, this critical care time included recommendation and review of studies, including imaging; arranging an urgent treatment and management plan with on-site providers; evaluation of patient's response to treatment; and documentation. This critical care time was performed to assess and manage the high probability of imminent, life-threatening deterioration that could result in neurologic catastrophe. # Demographics First Name: KRISTIN Last Name: JUDE Facility: [facility] DARSHAN GARCIA MD Jan 29, 2025 22:10
[2025-01-29 22:15] LABS: MEAN PLATELET VOLUME 8.8 FL (7.4-10.4); RED CELL DISTRIBUTION WIDTH 14.8 % (11.5-14.5)
--- NOTE | 2025-01-29 22:20 | RADIOLOGY REPORT ---
EXAM: CT CT STROKE ALERT CLINICAL HISTORY: Stroke Alert TECHNIQUE: CT of the head was performed without intravenous contrast. This exam was performed according to our departmental dose optimization program. Up-to-date CT equipment and radiation dose reduction techniques are utilized as appropriate. Dose: CTDIvol: 61.17 mGy, DLP: The level and a 5.1 mGy dealt cm COMPARISON: None FINDINGS: Motion artifact degrades fine detail. There is a small to moderate region of low attenuation within the left occipital lobe suggesting acute/ subacute infarct. The ventricles, cisterns, and sulci appear age-appropriate. There is no evidence for acute intracranial hemorrhage or mass effect. The orbits are normal. The visualized paranasal sinuses and mastoid air cells are clear. The soft tissues and osseous structures appear within normal limits. IMPRESSION: 1. Findings as above suggesting acute/ subacute left occipital infarct. MRI suggested in further assessment. 2. No acute intracranial hemorrhage. Critical Result: Stroke Alert Findings discussed with ALESSANDRO CEDILLO at 01/29/2025 10:17 PM, and acknowledged receipt and understanding of the findings.
[2025-01-29 22:25] LABS: CREATININE 0.96 MG/DL (0.40-0.90); TOTAL CARBON DIOXIDE 30.5 MMOL/L (24-32); eCRCL 47 ML/MIN; eGFR 61 ML/MIN
[2025-01-29 22:28] LABS: APTT 26 SECONDS (22-32); INR 1.0 INR
[2025-01-29] MEDS ORDERED: ERGO125018 PO (23:19)
[2025-01-29] MEDS ORDERED: SEMA1PEN3 SUBCUT (23:19)
--- NOTE | 2025-01-29 23:20 | RADIOLOGY REPORT ---
INDICATION: vision changes COMPARISON: CT CT STROKE ALERT on DOS: 01/29/25, CT CT CHEST on DOS: 03/21/23, CTA CHEST on DOS: 10/06/20 TECHNIQUE: CTA imaging of the head and neck was performed following the uneventful administration of intravenous contrast. Sagittal and coronal reformatted images were obtained from the source data. All CT scans at this medical facility are performed using dose modulation techniques as appropriate to a performed exam including the following: Automated exposure control was utilized; adjustment of the MA and/or KV according to patient size; and use of iterative reconstruction technique. 3D MIP post-processing of the source data set was performed and reviewed by the radiologist. Radiation Dose Information: CT Dose: CTDI volume is 17.83 mGy. Dose-length product is 645.85 mGy*cm FINDINGS: The caliber and course of the distal internal carotid arteries is unremarkable. No evidence of high-grade stenosis or occlusion of the proximal branch vessels of the [place]. The basilar artery is patent. The intracranial segments of the bilateral vertebral arteries are unremarkable in caliber. No evidence of large aneurysm or arteriovenous malformation. The visualized thoracic aortic arch and proximal great vessels are unremarkable. The left common, internal and external carotid arteries are within normal limits. The right common, internal and external carotid arteries are within normal limits. The cervical segments of the right and left vertebral arteries are within normal limits. The limited visualized lung apices are clear. The surrounding soft tissues and osseous structures are otherwise unremarkable. IMPRESSION: 1. No large vessel occlusion. No evidence of hemodynamically significant cervical stenosis or dissection.
--- NOTE | 2025-01-29 23:42 | RADIOLOGY REPORT ---
EXAM: DI CHEST,SINGLE VIEW TECHNIQUE: Single frontal chest radiograph CLINICAL HISTORY: Stroke Alert COMPARISON: CT CT CHEST on DOS: 03/21/23, DI CHEST,TWO VIEWS on DOS: 03/21/23, DI CHEST,SINGLE VIEW on DOS: 03/21/23, CHEST,TWO VIEWS on DOS: 09/14/21, CHEST,SINGLE VIEW on DOS: 08/17/21 FINDINGS/IMPRESSION: Suboptimal assessment. There is prominence of the interstitial markings. There is prominence of the cardiomediastinal silhouette, likely accentuated by technique.. No definite pleural effusion or pneumothorax. Unchanged osseous structures.
[2025-01-30] VITALS (11 sets, daily range): BP systolic 125–158; BP diastolic 67–85; PULSE 62–112; RESP 15–21; TEMP 97.8–98.3; O2SAT 91–99
[2025-01-30] MEDS ORDERED: magnesium Cl slow-release 64mg tablet PO PRN (00:25)
[2025-01-30] MEDS ORDERED: magnesium sulf-water 4G/100mL 100 ML IV PRN (00:25)
[2025-01-30] MEDS ORDERED: potassium Cl 20 mEq SR tablet PO PRN (00:25)
[2025-01-30] MEDS ORDERED: ondansetron/PF 4mg/2ml inj IV PRN (00:25)
[2025-01-30] MEDS ORDERED: mag hydrox/Alum hydrox/simeth 30ml oral suspension PO PRN (00:25)
[2025-01-30] MEDS ORDERED: magnesium sulf-water 2g/50mL 50 ML IV PRN (00:25)
[2025-01-30] MEDS ORDERED: magnesium hydroxide 30ml (MOM) UD suspension PO PRN (00:25)
[2025-01-30] MEDS ORDERED: potassium Cl 40MEQ/1/2NS 520ml 520 ML IV PRN (00:25)
[2025-01-30] MEDS ORDERED: morphine 4 MG/ML inj SYRINge IV PRN ×2 (00:30)
[2025-01-30 01:05] LABS: CREATININE 1.01 MG/DL (0.40-0.90); PHOSPHORUS 3.9 MG/DL (2.3-4.5); TOTAL CARBON DIOXIDE 33.3 MMOL/L (24-32); eCRCL 45 ML/MIN; eGFR 58 ML/MIN
--- NOTE | 2025-01-30 01:05 | HISTORY AND PHYSICAL-Residence ---
History & Physical Providers to CC Resident Creating Document: PREMA COLLINS RES ~ History of Present Illness Primary Medical Doctor: [facility] Reason for Admit\Complaint: Headache History of Present Illness 50-year-old female with history of stroke, hypertension, hyperlipidemia, type 2 diabetes, COPD, type 2 HI, sleep apnea came to the ED with complaints of headache, left retro-orbital pain and inability to read. She states that she has been having vision problems since the last few days, she thought that her eyes could be dry and she used some eyedrops. Today morning she woke up with a bad headache with a severity of 10/10. She took her blood pressure medication and went back to sleep. She woke up again with the same headache, and she stated that she could not read stuff even though she could see it. She denied slurring of speech. She was home alone at the time. She denied weakness in her extremities and numbness. She stated that after her daughter came back from school, she was brought here by her daughter. She still complains of headache with a severity of 8/10, in the frontal area, and in the left temporal region and left retro-orbital pain. She denies double vision. She denies numbness of the face and other neurological deficits. She states that she had some confusion earlier but is fine now. She states that she has always had stress incontinence. She has some nausea but attributes it to Ozempic. She denies falls, vomiting, chest pain, palpitations, shortness of breath, difficulty swallowing, burning micturition, fever, chills, changes in appetite, abdominal pain, constipation, diarrhea, swelling or pain in legs. Allergies: Coded Allergies: No Known Allergies (Unverified , 01/27/17) Home Medications Home Medications Active Lasix (Furosemide) 20 Mg Tablet 40 Mg PO BID 30 Days IPRAT-ALBUT 0.5-3(2.5) MG/3 ML nebule (Ipratropium/Albuterol Sulfate) 3 Ml Ampul.neb 3 Ml NEB Q4HRT 10 Days Carvedilol 3.125 Mg Tablet 1 Tab PO Q12H 30 Days Amlodipine Besylate 5 Mg Tablet 1 Tablet PO DAILY Reported Vitamin D2 (Ergocalciferol (Vitamin D2)) 1,250 Mcg (51550 Unit) Capsule 1 Cap PO Q7D 28 Days Ozempic (Semaglutide) 1 Mg/0.75 Ml (4 Mg/3 Ml) Pen.injctr 1 Mg SUBCUT Q7D 30 Days Budesonide-Formoterol 80-4.5 (Budesonide/Formoterol Fumarate) 10.2 Gm Hfa.aer.ad 2 Puffs PO BID Ventolin Hfa (Albuterol Sulfate) 18 Gm Hfa.aer.ad 2 Puffs INH Q4HPRN Atorvastatin Calcium 20 Mg Tablet 1 Tab PO DAILY 30 Days Lisinopril 20 Mg Tablet 1 Tab PO BID 30 Days Aspirin EC (Aspirin) 81 Mg Tablet.dr 1 Tab PO DAILY Lexapro (Escitalopram Oxalate) 10 Mg Tablet 1 Tab PO DAILY Past Medical History Past Medical History Hypertension Hyperlipidemia Diabetes type 2 Stroke HI type 2 COPD Sleep apnea Stress incontinence Obesity Past Surgical History Surgical History Comment Carpal tunnel surgery Bilateral tubal ligation Tonsillectomy Family History Family History: FH: liver cancer Past Social History Social History Comment She is an active smoker, she smokes half pack per day for the past 20 years She smokes marijuana twice a month for the past 6 months to help her sleep She denies alcohol use She lives with her daughter at home Smoking: Cigarettes Alcohol Use: None Drug Use: Marijuana Lives with: S/O Lives In: Home Occupation: unemployed ROS ROS Constitutional: No fever, chills, dizziness, weight gain or loss Eyes: Reports left-sided retro-orbital pain and blurring of vision, No erythema, discharge ENT: No sore throat, epistaxis, tinnitus Cardiovascular:No chest pain, palpitations, syncope, lower extremity edema, paroxysmal nocturnal dyspnea Respiratory: Reports chronic cough, No Shortness of breath, No hemoptysis. Gastrointestinal: Reports nausea, No Abdominal pain, vomiting,constipation,diarrhea. Normal appetite. No hematemesis or melena. Musculoskeletal: No Swelling, pain in bilateral lower legs. Integumentary: No change in skin, hair, nails. No swelling, bruising, abrasions Neurologic: Reports headache, No weakness, neck pain, numbness or tingling of the extremities, Psychiatric: No delusions, depression, loss of interest in normal activity or change in sleep pattern, hallucinations, suicidal ideations Endocrine: No fatigue, no weakness. polydipsia, polyuria, change in appetite, heat or cold intolerance, sweating, dry skin Hematological: No bleeding, petechiae, bruising Allergies: No asthma or urticaria Exam Vitals: Vital Signs Date Time Temp Pulse Resp B/P (MAP) Pulse Ox O2 Delivery O2 Flow Rate FiO2 01/29/25 23:15 98 21 155/93 96 01/29/25 22:34 97.7 0 General: Awake , alert, and oriented x4, obese, in mild distress HEENT: Atraumatic, normocephalic, EOMI, anicteric sclera ; pink conjunctiva Neck: Trachea midline. Supple, full range of motion, no JVD Cardiac: Regular rhythm, regular rate with no murmurs all over the precordium. Respiratory: Equal breath sounds bilaterally, no tachypnea, no wheezing ,rub or rales, Chest wall is symmetric and without deformity. Gastrointestinal: Abdomen symmetric, non-distended, soft, non-tender, normal bowel sounds x4 quadrant, normoactive, no hepatosplenomegaly Musculoskeletal: No pedal edema, no cyanosis Neurological: Speech is clear, alert, and oriented x 4. No motor or sensory deficit, deep tendon reflexes normal, cerebellar intact. Cranial nerves II-XII intact. Skin: Warm and dry Diagnostic Data Last Recorded Lab Results: 01/29/25215501/29/252155 Diagnostic Data: Laboratory Tests Test 01/29/25 21:56 Prothrombin Time 10.6 SECONDS (9.0-12.0) INR International Normalized Ratio 1.0 INR Activated Partial Thromboplast Time 26 SECONDS (22-32) Coagulation Comments Additional Plan Possible Ischemic acute vs subacute Stroke NIHSS-0 Blood pressure was high on admission- 173/101 Mild leukocytosis, WBC-12 Coagulation profile normal Head CT shows findings suggesting acute/subacute left occipital infarct and no intracranial hemorrhage. CTA head and neck shows no large vessel occlusion and no evidence of hemodynamically significant cervical stenosis or dissection Plan: Started aspirin 81 mg and Plavix 75 mg p.o. daily Started atorvastatin 80 mg p.o. daily Follow up MRI head Follow up echo Fall precautions in place Ordered bedside swallow test, we will resume diet if negative Continue telemetry monitoring Hypertension Blood pressure was on the higher side on admission, stabilized now Patient uses lisinopril 20 mg b.i.d., amlodipine 10 mg, Lasix 20 mg Q6h, carvedilol 6.25 mg Hold antihypertensives in view of permissive hypertension Monitor blood pressure Hyperlipidemia Follow up lipid panel Patient uses atorvastatin 20 mg daily at home Started atorvastatin 80 mg p.o. daily Diabetes mellitus type 2 HbA1c is 6 Glucose is 106 COPD, not in exacerbation Continued her home medications ipratropium/albuterol inhaler and budesonide/formoterol inhalers Sleep apnea Continued CPAP Code status: Full code DVT prophylaxis: SCD GI prophylaxis: Pain management: Morphine 1 mg/2 mg Diet/nutrition: NPO now, heart healthy diet after BSS Prognosis: Guarded Disposition: Continue medical management, continue telemetry monitoring, follow up MRI head, PT eval and DC plan Resident MD attestation: The patient note has been reviewed and supervised by senior residents PGY-2/ PGY-3. Patient was seen, examined and discussed with attending physician. Prema Collins MD Internal Medicine resident, PGY-1 Date of Service: Jan 30, 2025 Billing Provider: LAMBERTO SPENCE MD,PREMA, RES Jan 30, 2025 01:05
[2025-01-30] MEDS ORDERED: albuterol 60 PUFF/8GM Inhaler (90mcg/1 puff) IH PRN (01:40)
[2025-01-30] MEDS: ipratropium/albuterol 3ml nebule NEB PRN (02:35)
[2025-01-30] MEDS ORDERED: ipratropium/albuterol 3ml nebule NEB SCH (03:00)
[2025-01-30 06:29] LABS: PRO BRAIN NATRIURETIC PEPTIDE 680.0 PG/ML (0-125)
[2025-01-30] MEDS: K and/or MAG REPLACEMENT MC SCH (07:11)
[2025-01-30] MEDS: budesonide 0.5mg/2ml UD nebule IH SCH (07:33)
[2025-01-30] MEDS ORDERED: non-formulary drug (Budesonide/Formoterol Fumarate (Budesonide-Formoterol 80-4.5) 2 PUFFS) PO SCH (08:00)
[2025-01-30] MEDS: docusate sod 100mg capsule PO SCH (08:00)
[2025-01-30] MEDS: ESCITALOPRAM 10 mg tablet 10 MG TABLET PO SCH (09:26)
[2025-01-30] MEDS: potassium Cl 20 mEq SR tablet PO PRN (09:29)
--- NOTE | 2025-01-30 13:44 | PROGRESS NOTE ---
Daily Progress Note Providers to CC ~ Antibiotic Timeout Antibiotic Ordered?: No Subjective Patient has no new complaints. Seen resting comfortably. Continues to have headache behind her left eye. Objective Vital Signs Date Time Temp Pulse Resp B/P (MAP) Pulse Ox O2 Delivery O2 Flow Rate FiO2 01/30/25 10:00 98.1 62 18 158/85 (109) 93 Room Air 01/30/25 07:34 2.0 01/30/25 07:33 21 Result Diagram: 01/29/25215501/30/25 0535 Morbidly obese female, in no acute distress HEENT normocephalic atraumatic extraocular movements are intact Neck supple, no JVD Chest: Clear to auscultation, no wheezes crackles rhonchi Heart: Regular rate rhythm, no murmur or gallop rub Abdomen is soft nontender no organomegaly Extremities no cyanosis clubbing or edema Neuro exam nonfocal. Coagulation Studies Laboratory Tests Test 01/29/25 21:56 Prothrombin Time 10.6 SECONDS (9.0-12.0) INR International Normalized Ratio 1.0 INR Activated Partial Thromboplast Time 26 SECONDS (22-32) Coagulation Comments Other Results Medications reviewed Problem\Assessment\Plan 50 years old female with a history of hypertension, hyperlipidemia, type 2 diabetes, COPD, sleep apnea, presented to the ER for left retro-orbital pain and headache and inability to read. # acute CVA: MRI of the brain showed moderate-sized acute infarct involving the left posteromedial and posterolateral temporal lobes as well as anterior occipital lobe. Tele neurology was consulted and patient has been followed by the stroke nurse Erin. Continue aspirin Plavix and statin. #COPD without exacerbation: Inhaled bronchodilators p.r.n. and # type 2 diabetes mellitus: Carb controlled diet. Hyper/hypoglycemia protocol. # sleep apnea: Continue CPAP per RT # hyperlipidemia: Continue statin # hypokalemia: Replace per protocol #code status: Full code # GI prophylaxis: Pepcid Date of Service: Jan 30, 2025 Billing Provider: JESSICA BENTON MD Common Visit Codes: 51487-[id number] INP/OBS CARE(HIGH) JESSICA BENTON MD Jan 30, 2025 13:44
--- NOTE | 2025-01-30 15:11 | RADIOLOGY REPORT ---
CLINICAL HISTORY: CVA TECHNIQUE: Routine multiplanar imaging of the brain was performed without gadolinium contrast. COMPARISON: CT CTA NECK/HEAD on DOS: 01/29/25, CT CT STROKE ALERT on DOS: 01/29/25 FINDINGS: There is a moderate size acute infarct involving the left posterior medial posterolateral temporal lobes as well as anterior occipital lobe. There are a few punctate foci of T2 hyperintensity within the white matter both cerebral hemispheres, which are most compatible with a minimal burden of nonspecific chronic small vessel ischemic change. There is no evidence for mass, mass effect, or extra-axial fluid collection. There is no hydrocephalus or midline shift. The basal subarachnoid cisterns are not effaced. The imaged paranasal sinuses are clear. The globes are intact. The midline structures, including the corpus callosum, are unremarkable. The intracranial flow voids are maintained. IMPRESSION: Moderate size acute infarct involving the left posteromedial and posterolateral temporal lobes as well as anterior occipital lobe.
--- NOTE | 2025-01-30 18:53 | CARDIOLOGY REPORT ---
APPROVED REPORT EXAM: Comprehensive 2D, Doppler, and color-flow Echocardiogram. Patient Location: [facility] Heart Rate: 68-87 bpm Rhythm: ATRIAL FIBRILLATION Indications CEREBRALVASCULAR ACCIDENT CONTRAST NOT ORDERED SHORT OF BREATH COPD Hand Tube Bender: NONE Previous echo: 03/22/23 [facility] HD EF: 55%; SmLV-nlFX; mCLVH; nlRV; nlAV; nlMV; trTR; midLVcav grad: 7 2D Dimensions RVDd 3.4 cm LA Diam 4.4 cm LVOT Diameter 2.01 (1.8-2.4cm) CO 3.6 L/min M-Mode Dimensions Left Atrium(MM) 4.98 (2.5-4.0cm) IVSd 1.57 (0.7-1.1cm) LVDd 4.30 (4.0-5.6cm) Aortic Root 2.52 (2.2-3.7cm) PWd 1.48 (0.7-1.1cm) IVSs 1.91 cm LVDs 2.96 (2.0-3.8cm) FS (%) 31 % PWs 2.00 cm ESV(Teich) 33.8 ml LVEF(%) 59 (>50%) Aortic Valve AoV Peak Obie. 128.8 cm/s AoV VTI 25.6 cm AO Peak GR. 6.6 mmHg AO Mean GR. 4 mmHg LVOT VTI 20.04 cm LVOT Peak Obie. 89.5 cm/s ANA(VTI)/BSA 2.47 cm2/m2 ANA (VTI) 2.47 cm2 Mitral Valve MV Peak Gr. 12 mmHg MV PHT 68 ms MVA (PHT) 3.24 cm2 MV VMax 170.3 cm/s Tricuspid Valve TR P. Velocity 339 cm/s RAP ESTIMATE 10 mmHg TR Peak Gr. 46 mmHg RVSP 56 mmHg LEFT VENTRICLE Normal LV size and function. Mild concentric hypertrophy. No significant LV cavity gradient detected. LVEF is 65-70%. RIGHT VENTRICLE RV is normal size and function. Elevated right heart pressures with an RVSP of 56 mmHg. ATRIA Left atrium is mildly dilated. AORTIC VALVE Trileaflet AV appears mildly sclerotic without stenosis or insufficiency. MITRAL VALVE Moderate MV annular calcification without stenosis. Trace regurgitation. TRICUSPID VALVE TV appears structurally normal with moderate regurgitation. PULMONIC VALVE Pulmonic valve is not visualized. GREAT VESSELS The aortic root is normal in size. The ascending aorta is normal in size. IVC is dilated and collapses less than 50% with inspiration. PERICARDIUM Normal pericardium. No effusion. Other Information Study Quality: Technically Difficult due to habitus, smoking history (COPD), and poor imaging windows. Conclusion Normal LV size and function. Mild concentric hypertrophy. No significant LV cavity gradient detected. LVEF is 65-70%. RV is normal size and function. Elevated right heart pressures with an RVSP of 56 mmHg. Left atrium is mildly dilated. Trileaflet AV appears mildly sclerotic without stenosis or insufficiency. Moderate MV annular calcification without stenosis. Trace regurgitation. TV appears structurally normal with moderate regurgitation. Normal pericardium. No effusion.
[2025-01-31 02:00] VITALS: BP 151/94; PULSE 109; RESP 21; TEMP 96.2; O2SAT 98
[2025-01-31 03:33] VITALS: PULSE 58; RESP 20; O2SAT 99
[2025-01-31 06:00] VITALS: BP 162/89; PULSE 78; RESP 14; TEMP 97.6; O2SAT 99
[2025-01-31 06:15] LABS: MEAN PLATELET VOLUME 8.9 FL (7.4-10.4); RED CELL DISTRIBUTION WIDTH 14.4 % (11.5-14.5)
[2025-01-31 06:24] LABS: CHOL/HDL RATIO 3.2 (0.00-4.99); CREATININE 0.88 MG/DL (0.40-0.90); LDL CHOLESTEROL 59 MG/DL (50-100); TOTAL CARBON DIOXIDE 31.0 MMOL/L (24-32); eCRCL 52 ML/MIN; eGFR 68 ML/MIN
[2025-01-31 07:52] VITALS: PULSE 91; RESP 18; O2SAT 93
[2025-01-31] MEDS ORDERED: aspirin 81mg, enteric-coated 1 TAB TABLET.DR PO SCH (08:25)
--- NOTE | 2025-01-31 09:26 | CONSULTATION REPORT ---
History of Present Illness Providers to CC ~ Reason for Admit\Admit Dx: Headache Refering MD: SHAHNAZ Allergies: Coded Allergies: No Known Allergies (Unverified , 01/27/17) Home Medications Home Medications Active Lasix (Furosemide) 20 Mg Tablet 40 Mg PO BID 30 Days IPRAT-ALBUT 0.5-3(2.5) MG/3 ML nebule (Ipratropium/Albuterol Sulfate) 3 Ml Ampul.neb 3 Ml NEB Q4HRT 10 Days Carvedilol 3.125 Mg Tablet 1 Tab PO Q12H 30 Days Amlodipine Besylate 5 Mg Tablet 1 Tablet PO DAILY Reported Vitamin D2 (Ergocalciferol (Vitamin D2)) 1,250 Mcg (69998 Unit) Capsule 1 Cap PO Q7D 28 Days Ozempic (Semaglutide) 1 Mg/0.75 Ml (4 Mg/3 Ml) Pen.injctr 1 Mg SUBCUT Q7D 30 Days Budesonide-Formoterol 80-4.5 (Budesonide/Formoterol Fumarate) 10.2 Gm Hfa.aer.ad 2 Puffs PO BID Ventolin Hfa (Albuterol Sulfate) 18 Gm Hfa.aer.ad 2 Puffs INH Q4HPRN Atorvastatin Calcium 20 Mg Tablet 1 Tab PO DAILY 30 Days Lisinopril 20 Mg Tablet 1 Tab PO BID 30 Days Aspirin EC (Aspirin) 81 Mg Tablet.dr 1 Tab PO DAILY Lexapro (Escitalopram Oxalate) 10 Mg Tablet 1 Tab PO DAILY Past Family History Family History: FH: HTN (hypertension) FATHER (htn, stroke, mi), FH: emphysema MOTHER (heart disease, mental illness), FH: heart attack FATHER (htn, stroke, mi), FH: liver cancer Sister Physical Exam Last Vital Signs Recorded: Temperature: 97.6, Source: Oral, Heart Rate: 91, Respiratory Rate: 18, BP: 162/89, Pulse Oximetry: 93, Weight: 120.200 Results Diagram Lab Result Diagram: 01/31/2553901/31/25539 Assessment/Plan Additional Plan [place] [facility] Note # Demographics Consult Type: Follow-Up Phone Call Patient Location: Inpatient First Name: Sri Last Name: Zara Date of : 1975 Age: 50 Gender: Female Facility: [facility] Time of Initial Page ([facility] Time): 01/31/2025 09:15 First Contact with Site ([place] ): 01/31/2025 09:16 Phone Only Consult: 50 y/o woman admitted with acute stroke, found to have atrial fibrillation. MRI brain images personally reviewed. Due to the size of the stroke I recommend continuing DAPT until day 7 from stroke, at which time can stop DAPT and start anticoagulation of choice. Phone Agreement: - phone consult deemed mutually sufficient for patient care # Plan Other: - If patient has any neurological deterioration please call me back immediately # Logistics Attestation of consult completion: The patient is located at: [facility]. I performed this phone consultation from my offsite office Total time spent in telemedicine encounter: I spent 7 minutes in reviewing clinical data and/or imaging, obtaining history, communicating with the onsite care team, and in preparation of this report. # Demographics First Name: Sri Last Name: [facility] Facility: [facility] SHARMAINE REYNOLDS MD Jan 31, 2025 09:26
[2025-01-31 10:00] VITALS: BP 132/82; PULSE 76; RESP 18; TEMP 97.6; O2SAT 99
[2025-01-31] MEDS ORDERED: APIX5TAB3 PO (14:43)
[2025-01-31] MEDS ORDERED: ATOR20TA66 PO (14:43)
--- NOTE | 2025-01-31 15:04 | DISCHARGE SUMMARY ---
Discharge Summary Providers to CC ~ Discharge Summary Admission Diagnosis: Stroke Hospital Course DATE OF ADMISSION: 01/30/2025 DATE OF DISCHARGE:01/31/2025 Discharge Diagnosis\Comment: Acute infarct involving the left posteromedial and posterolateral temporal lobes as well as anterior occipital lobe. Operations\Procedures: Head CT Head MRI Echocardiogram Head / Neck CTA Consultants: Tele neurology Complications: None Condition on DC: Stable New Medications: Apixaban (Eliquis) 5 Mg Tablet 5 MG PO BID for 30 Days, #60 TAB Start on 02/08/25 after completing course with aspirin and plavix for seven days. Atorvastatin Calcium (Atorvastatin Calcium) 20 Mg Tablet 80 MG PO DAILY for 30 Days, #30 TAB Clopidogrel Bisulfate (Clopidogrel) 75 Mg Tablet 75 MG PO DAILY for 7 Days, #7 TAB Do not stop medication unless instructed by prescriber. Once finished, start taking eliquis Continued Medications: Albuterol Sulfate (Ventolin Hfa) 18 Gm Hfa.aer.ad 2 PUFFS INH Q4HPRN, #1 INHALER Amlodipine Besylate (Amlodipine Besylate) 5 Mg Tablet 1 TABLET PO DAILY, #30 TABLET 5 Refills Aspirin (Aspirin EC) 81 Mg Tablet.dr 1 TAB PO DAILY Budesonide/Formoterol Fumarate (Budesonide-Formoterol 80-4.5) 10.2 Gm Hfa.aer.ad 2 PUFFS PO BID Carvedilol (Carvedilol) 3.125 Mg Tablet 1 TAB PO Q12H for 30 Days, #60 TAB Ergocalciferol (Vitamin D2) (Vitamin D2) 1,250 Mcg (69437 Unit) Capsule 1 CAP PO Q7D for 28 Days, #4 CAP 0 Refills Escitalopram Oxalate (Lexapro) 10 Mg Tablet 1 TAB PO DAILY, TAB Furosemide (Lasix) 20 Mg Tablet 40 MG PO BID for 30 Days, #60 TAB Ipratropium/Albuterol Sulfate (IPRAT-ALBUT 0.5-3(2.5) MG/3 ML nebule) 3 Ml Ampul.neb 3 ML NEB Q4HRT for 10 Days, #40 ML Lisinopril (Lisinopril) 20 Mg Tablet 1 TAB PO BID for 30 Days, #30 TAB Semaglutide (Ozempic) 1 Mg/0.75 Ml (4 Mg/3 Ml) Pen.injctr 1 MG SUBCUT Q7D for 30 Days, #3 ML 0 Refills Discontinued Medications: Atorvastatin Calcium (Atorvastatin Calcium) 20 Mg Tablet 1 TAB PO DAILY for 30 Days, #30 TAB Discharge Summary: Reason for admission:50 years old female with a history of hypertension, hyperlipidemia, type 2 diabetes, COPD, sleep apnea, presented to the ER for left retro-orbital pain and headache and inability to read. Please refer to admission H&P for more details. Hospital course: Patient was admitted on the monitored floor and the hospital course is as follows. # Acute CVA: MRI of the brain showed moderate-sized acute infarct involving the left posteromedial and posterolateral temporal lobes as well as anterior occipital lobe. Tele neurology was consulted and patient has been followed by the stroke nurse Erin. Continue aspirin Plavix and statin for one week and switch to NOAC per tele neuro recommendations. #COPD without exacerbation: Treated with Inhaled bronchodilators. # type 2 diabetes mellitus: Placed on Carb controlled diet. Hyper/hypoglycemia protocol. # sleep apnea: Treated with CPAP per RT # hyperlipidemia: Continued statin # hypokalemia: Replaced per protocol #code status: Full code # GI prophylaxis: Pepcid Discharge exam: I examined the patient on the day of discharge. Gen. awake alert oriented asymptomatic HEENT: Normocephalic, atraumatic, pupils round reactive to light and accommodation, extraocular movements are intact, sclera anicteric, conjunctiva pinkish, moist oral mucosa, no rash or ulcers. NECK: Supple, no JVD, trachea midline. CHEST: Clear to auscultation, no wheezes crackles or rhonchi. HEART: Regular rate rhythm, no murmur gallop or rub. ABDOMEN: Soft, nontender, no organomegaly. EXTREMITIES: No cyanosis clubbing or edema. NEURO EXAM: Grossly nonfocal. MUSCULOSKELETAL : No joint swelling or deformities. SKIN: No rash or ulcers noted. Disposition : Home *Problems/Diagnosis: (1) Stroke Status: Acute Total Time Spent on D/C: > 30 Minutes Date of Service: Jan 31, 2025 Billing Provider: JESSICA BENTON MD Common Visit Codes: 45125-BAC/OBS DISCH DAY >30min JESSICA BENTON MD Jan 31, 2025 14:51
[2025-01-31] MEDS ORDERED: CLOP75TA34 PO (15:36)
[2025-02-01 05:19] LABS: HBSAG SCREEN Negative (Negative); HEP B CORE AB, IGM Negative (Negative); HEP B CORE AB, TOT Negative (Negative)
== END 2025-01-31 16:35 | disposition home or self-care (01) | DRG 45 ==
LOC: ER 21:16 → ED HOLD 01-30 00:07 → ORTHO 4S 01-30 01:53
PROVIDERS: ADMIT Internal Medicine Pulmonary Disease; ATTEND Internal Medicine Pulmonary Disease
PROC: B3251ZZ Computerized Tomography (CT Scan) of Bilateral Common Carotid Arteries using Low Osmolar Contrast (ICD-10-PCS; principal; 2025-01-29)
PROC: B32G1ZZ Computerized Tomography (CT Scan) of Bilateral Vertebral Arteries using Low Osmolar Contrast (ICD-10-PCS; 2025-01-29)
PROC: B32R1ZZ Computerized Tomography (CT Scan) of Intracranial Arteries using Low Osmolar Contrast (ICD-10-PCS; 2025-01-29)
PROC: B3281ZZ Computerized Tomography (CT Scan) of Bilateral Internal Carotid Arteries using Low Osmolar Contrast (ICD-10-PCS; 2025-01-29)
PROC: 5A09357 Assistance with Respiratory Ventilation, Less than 24 Consecutive Hours, Continuous Positive Airway Pressure (ICD-10-PCS; 2025-01-31)
DX: I63.9 Cerebral infarction, unspecified (principal); D72.829 Elevated white blood cell count, unspecified; E11.9 Type 2 diabetes mellitus without complications; E78.5 Hyperlipidemia, unspecified; E78.00 Pure hypercholesterolemia, unspecified; E87.6 Hypokalemia; H54.62 Unqualified visual loss, left eye, normal vision right eye; J44.9 Chronic obstructive pulmonary disease, unspecified; G47.39 Other sleep apnea; I10 Essential (primary) hypertension; I25.2 Old myocardial infarction; Z79.899 Other long term (current) drug therapy; Z98.891 History of uterine scar from previous surgery
CPT/HCPCS: 36415; 70450; 70496; 70498; 70551; 71045; 80048; 80053; 80061; 82948; 83036; 83735; 83880; 84100; 84132; 84484; 85025; 85610; 85651; 85730; 86704; 86705; 87081; 87340; 93005; 93306; 94640; 94660; 94760; 97116; 97161; 97530; A4615; G0378